=== PATIENT | male | born 1940 | race Caucasian/White ===

== ENCOUNTER → 2016-08-17 | Outpatient (CLI) | payer MEDICARE, BC | END | disposition home or self-care (01) | LOC: MW.CHFP 13:05 | PROVIDERS: ATTEND Family Medicine | DX: E11.42 Type 2 diabetes mellitus with diabetic polyneuropathy (principal); I10 Essential (primary) hypertension; I25.10 Atherosclerotic heart disease of native coronary artery without angina pectoris; E78.5 Hyperlipidemia, unspecified; K21.9 Gastro-esophageal reflux disease without esophagitis | CPT/HCPCS: 36415; 80048; 80061; 83036; 99214 ==

== ENCOUNTER 2019-06-02 15:20 | Inpatient (IN) | payer MEDICARE, BC ==
[2019-06-02] MEDS ORDERED: Morphine 10 MG/ML Syringe IVPUSH PRN (15:27)
[2019-06-02] MEDS ORDERED: Albuterol 0.083% 2.5 MG/3 ML Neb Soln NEB PRN (15:29)
[2019-06-02] MEDS ORDERED: Sodium Chloride 0.9% 2.5 ML Syringe FLUSH PRN (15:29)
[2019-06-02] MEDS ORDERED: Ondansetron 4 MG/2 ML SDV IVPUSH PRN (15:29)
[2019-06-02] MEDS ORDERED: Docusate Sodium 100 MG Cap PO PRN (15:29)
--- NOTE | 2019-06-02 15:42 | PCM.HP.2 ---
H&P History of Present Illness - General Date of Service: 06/02/19 Admit Problem/Dx: Admission Diagnosis/Problem Admission Diagnosis/Problem Fracture of hip Source of Information: Patient History Limitations: Reports: No Limitations - History of Present Illness Initial Comments - Free Text/Narative: This 79 year old male with pmh of CAD, HTN, dyslipidemia, Dm Type [address] Reese's clinic today with hip pain. 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 He denies passing out. he reports he thinks his hand slipped and then he lost his balance and fell off the ladder landing on his R hip. He reports he had pain and dealt with it over the weekend, ambulating with crutches, but the pain continued and he saught evaluation in the clinic. He reports he has been feeling really well otherwise. No fevers chill or recent URI. He denies chest pain, palpitations or dyspnea. He denies abdominal pain. No urinary or bowel concerns. No black or bloody BMs. No focal neurological deficits. He reports he had 2 stents placed 8 years ago for angina and dyspnea. He denies NC. He reports these symptoms immediately improved after stents were placed. He was on Plavix previously, but now only takes ASA daily. Denies CHF. DM Type 2 is controlled, last A1c was 6.4 in March 2019. He denies tobacco use or alcohol use. In the clinic Xray of R hip revealed basicervical fracture within the R hip. Direct admission arranged. Once admitted, mild leukocytosis noted, likely reactive from fracture. No acute infection noted. CXR negative, no cardiopulmonary process, no cardiomegaly noted. EKG SR with no St elevations or T wave inversions noted. BMP WNL. Will obtain UA. PCP, Dr Reese - Related Data Allergies/Adverse Reactions: Allergies Allergy/AdvReac Type Severity Reaction Status Date / Time No Known Allergies Allergy Verified 06/02/19 16:15 Home Medications: Home Meds ALPRAZolam [Alprazolam] 1 mg PO DAILY PRN 06/02/19 [History] Glimepiride [Amaryl] 2 mg PO DAILY 06/02/19 [History] Lisinopril 40 mg PO DAILY 06/02/19 [History] Metoprolol Tartrate 25 mg PO BID 06/02/19 [History] amLODIPine Besylate [Norvasc] 10 mg PO DAILY 06/02/19 [History] atorvaSTATin [Lipitor] 40 mg PO DAILY 06/02/19 [History] hydroCHLOROthiazide [Hydrochlorothiazide] 25 mg PO DAILY 06/02/19 [History] metFORMIN HCl [Metformin HCl ER] 1,500 mg PO WITHDINNER 06/02/19 [History] Past Medical History Cardiovascular History: Reports: CAD, Hypertension, Stents (8 years ago, 2 stents). Denies: Afib, Blood Clots/VTE/DVT, Heart Failure, Pacemaker Respiratory History: Reports: None. Denies: Asthma, COPD Gastrointestinal History: Reports: GERD Genitourinary History: Reports: None. Denies: Chronic Renal Insuffiency Musculoskeletal History: Reports: None Neurological History: Reports: None. Denies: CVA, TIA Psychiatric History: Reports: Anxiety Endocrine/Metabolic History: Reports: Diabetes, Type II. Denies: Hypothyroidism Dermatologic History: Reports: Other (See Below) (recently had some actinic keritosis removed from ear, sent for pathology by ENT May 29 2019) - Past Surgical History Other HEENT Surgeries/Procedures: dental caries Cardiovascular Surgical History: Reports: Coronary Artery Stent Social & Family History - Tobacco Use Smoking Status *Q: Never Smoker - Caffeine Use Caffeine Use: Reports: Coffee - Alcohol Use Alcohol Use History: No - Living Situation & Occupation Living situation: Reports: Single Occupation: Retired (still ranches) H&P Review of Systems - Review of Systems: Review Of Systems: See Below General: Reports: No Symptoms. Denies: Fever, Chills, Malaise, Weakness HEENT: Reports: No Symptoms. Denies: Headaches, Sinus Congestion, Vertigo Pulmonary: Reports: No Symptoms. Denies: Shortness of Breath Cardiovascular: Reports: No Symptoms. Denies: Chest Pain, Lightheadedness, Syncope, Blood Pressure Problem Gastrointestinal: Reports: No Symptoms. Denies: Abdominal Pain, Black Stool, Bloody Stool, Nausea, Vomiting Genitourinary: Reports: No Symptoms. Denies: Dysuria, Frequency, Burning Musculoskeletal: Reports: Joint Pain (R hip pain, mostly in R groin) Skin: Reports: No Symptoms. Denies: Bruising Psychiatric: Reports: No Symptoms Neurological: Reports: No Symptoms Hematologic/Lymphatic: Reports: No Symptoms Immunologic: Reports: No Symptoms Exam - Exam Exam: See Below - Exam General: Alert, Oriented, Cooperative HEENT: Conjunctiva Clear, Posterior Pharynx Clear. No: Mucosa Moist & [place] (dry ) Neck: Supple, Trachea Midline Lungs: Clear to Auscultation, Normal Respiratory Effort Cardiovascular: Regular Rate, Regular Rhythm, Normal S1, Normal S2. No: Irregular Rhythm, Systolic Murmur GI/Abdominal Exam: Normal Bowel Sounds, Soft, Non-Tender Back Exam: Normal Inspection, Full Range of Motion Extremities: Normal Inspection, No Pedal Edema. No: Normal Range of Motion ( pain with R leg movement) Neurological: Cranial Nerves Intact Neuro Extensive - Mental Status: Alert, Oriented x3, Normal Mood/Affect, Normal Cognition Psychiatric: Alert, Normal Affect, Normal Mood - Patient Data Result Diagrams: 06/02/19 15:47 06/02/19 15:47 EKG INTERPRETATION EKG Date: 06/02/19 Rhythm: NSR P-Wave: Present QRS: Normal ST-T: Normal QT: Normal *Q Meaningful Use (ADM) - VTE Risk Assess *Q Each Risk Factor Represents 1 Point: Obesity ( BMI > 25 kg/m2) Total Score 1 Point Risk Factors: 1 Each Risk Factor Represents 3 Points: Age 75 Years or Greater Total Score 3 Point Risk Factors: 3 Each Risk Factor Represents 5 Points: Hip, Pelvis or Leg Fracture, Less than 1 month Total Score 5 Point Risk Factors: 5 - Problem List (1) Hip fracture SNOMED Code(s): 758941837 ICD Code: S72.009A - FRACTURE OF UNSP PART OF NECK OF UNSP FEMUR, INIT Status: Acute Current Visit: Yes Qualifiers: Encounter type: initial encounter Fracture type: closed Laterality: right Qualified Code(s): S72.001A - Fracture of unspecified part of neck of right femur, initial encounter for closed fracture (2) CAD (coronary artery disease) SNOMED Code(s): 02843288 ICD Code: I25.10 - ATHSCL HEART DISEASE OF [place] CORONARY ARTERY W/O ANG PCTRS Status: Chronic Current Visit: Yes (3) Osteopenia SNOMED Code(s): 219929289 ICD Code: M85.80 - OTH DISRD OF BONE DENSITY AND STRUCTURE, UNSPECIFIED SITE Status: Chronic Current Visit: Yes (4) HTN (hypertension) SNOMED Code(s): 91425387 ICD Code: I10 - ESSENTIAL (PRIMARY) HYPERTENSION Status: Chronic Current Visit: Yes (5) DM type 2 (diabetes mellitus, type 2) SNOMED Code(s): 28385069 ICD Code: E11.9 - TYPE 2 DIABETES MELLITUS WITHOUT COMPLICATIONS Status: Chronic Current Visit: Yes Qualifiers: Diabetes mellitus moth exterminator insulin use: without moth exterminator use Diabetes mellitus complication status: without complication Qualified Code(s): E11.9 - Type 2 diabetes mellitus without complications (6) Anxiety SNOMED Code(s): 30276003 ICD Code: F41.9 - ANXIETY DISORDER, UNSPECIFIED Status: Chronic Current Visit: Yes (7) GERD (gastroesophageal reflux disease) SNOMED Code(s): 524895539 ICD Code: K21.9 - GASTRO-ESOPHAGEAL REFLUX DISEASE WITHOUT ESOPHAGITIS Status: Chronic Current Visit: Yes Qualifiers: Esophagitis presence: without esophagitis Qualified Code(s): K21.9 - Gastro -esophageal reflux disease without esophagitis (8) Dyslipidemia SNOMED Code(s): 394976383 ICD Code: E78.5 - HYPERLIPIDEMIA, UNSPECIFIED Status: Chronic Current Visit: Yes Problem List Initiated/Reviewed/Updated: Yes Orders Last 24hrs: Active Orders 24 hr Category Date Time Status Patient Status [ADT] Routine ADT 06/02/19 15:27 Active EKG Documentation Completion [RC] STAT Care 06/02/19 15:29 Active Height and Weight [RC] DAILY Care 06/02/19 15:27 Active Intake and Output [RC] QSHIFT Care 06/02/19 15:28 Active Notify Provider Consults [RC] ASDIRECTED Care 06/02/19 15:32 Active Oxygen Therapy [RC] PRN Care 06/02/19 15:27 Active RT Aerosol Therapy [RC] ASDIRECTED Care 06/02/19 15:30 Active VTE/DVT Education [RC] PER UNIT ROUTINE Care 06/02/19 15:27 Active Vital Signs [RC] Q4H Care 06/02/19 15:27 Active Consult to Physician [CONS] Routine Cons 06/02/19 15:29 Active Nothing per Oral Now Diet [DIET] Diet 06/02/19 Dinner Active Chest 1V Frontal [CR] Urgent Exams 06/02/19 15:29 Ordered CBC WITH AUTO DIFF [HEME] Routine Lab 06/02/19 15:29 Ordered COMPREHENSIVE METABOLIC PN,CMP [CHEM] Routine Lab 06/02/19 15:29 Ordered INR,PT,PROTHROMBIN TIME [COAG] Routine Lab 06/02/19 15:29 Ordered PTT,PARTIAL THROMBOPLSTIN TIME [COAG] Routine Lab 06/02/19 15:29 Ordered Albuterol [Proventil Neb Soln] Med 06/02/19 15:29 Active 2.5 mg NEB Q2H PRN Docusate Sodium [Colace] Med 06/02/19 15:29 Active 100 mg PO BID PRN Morphine Med 06/02/19 15:33 Active 2 mg IVPUSH Q2H PRN Ondansetron [Zofran] Med 06/02/19 15:29 Active 4 mg IVPUSH Q4H PRN Sodium Chloride 0.9% [Saline Flush] Med 06/02/19 15:29 Active 2.5 ml FLUSH ASDIRECTED PRN Saline Lock Insert [OM.PC] Routine Oth 06/02/19 15:27 Ordered Medication Orders Albuterol (Proventil Neb Soln) 2.5 mg NEB Q2H PRN PRN Reason: Shortness Of Breath/wheezing Docusate Sodium (Colace) 100 mg PO BID PRN PRN Reason: Constipation Morphine Sulfate (Morphine) 2 mg IVPUSH Q2H PRN PRN Reason: Pain (severe 7-10) Ondansetron HCl (Zofran) 4 mg IVPUSH Q4H PRN PRN Reason: Nausea Sodium Chloride (Saline Flush) 2.5 ml FLUSH ASDIRECTED PRN PRN Reason: Keep Vein Open Assessment/Plan Comment:: This 79 year old male admitted with R hip fracture 1. R hip fracture: Dr Bah, Orthopedics consulted, like OR tomorrow afternoon. Tylenol for pain, Morphine for severe pain. Bedrest. No history of bleeding or Blood clots. 2. CAD: Stable, no chest pain. EKG SR. Continue ASA. Place on telemetry. Continue Statin 3. HTN: BP Stable, continue Metoprolol and Norvasc. 4. DM Type 2: Hold PO medications during admission. Novolog SSI. 5. Anxiety: Continue Alprazolam, takes very infrequently. 6. GERD: Will give Protonix in am due to NPO for surgery. Normally takes Omeprazole. VTE prophylaxis: SCDs for now, will speak with Orthopedics regarding this post- operatively. Rg is an appropriate surgical risk given his history of CAD, HTN and DM Type 2. - Mortality Measure Prognosis:: Good
--- NOTE | 2019-06-02 16:11 | CR ---
Chest: Portable view of the chest was obtained. Comparison: Prior chest x-ray of 01/15/14. Heart size and mediastinum are within normal limits for portable technique. Lungs are clear with no acute parenchymal change. Bony structures are grossly intact. Impression: Nothing acute is identified on portable chest x-ray. Diagnostic code #1 This report was dictated in [place] Standard Time MTDD
[2019-06-02 16:22] LABS: CARBON DIOXIDE,CO2 25.2 mmol/L (21.0-32.0); POTASSIUM,K 3.8 mmol/L (3.5-5.1)
[2019-06-02] MEDS: Insulin Aspart 100 Units/ML 3 ML Pen SUBCUT SCH (16:57)
[2019-06-02] MEDS: Lactated Ringers 1,000 ML IV SCH (23:35)
[2019-06-03] MEDS: ALPRAZolam 0.5 MG Tab PO PRN ×2 (00:43→09:13)
[2019-06-03] MEDS: Metoprolol Tartrate 25 MG Tab PO SCH ×3 (03:03→21:02)
[2019-06-03 05:45] LABS: CARBON DIOXIDE,CO2 25.7 mmol/L (21.0-32.0); POTASSIUM,K 3.4 mmol/L (3.5-5.1)
[2019-06-03] MEDS: Pantoprazole 40 MG in Sodium Chloride 0.9% 10 ML IV SCH (07:11)
--- NOTE | 2019-06-03 07:54 | PCM.PN ---
- General Info Date of Service: 06/03/19 Admission Dx/Problem (Free Text): Admission Diagnosis/Problem Admission Diagnosis/Problem Fracture of hip Subjective Update: Doing well, no pain today. No chest pain or palpitations. feels a little anxious about surgery today. Functional Status: Reports: Pain Controlled, Urinating. Denies: Ambulating - Review of Systems HEENT: Reports: No Symptoms. Denies: Headaches, Sore Throat Pulmonary: Reports: No Symptoms. Denies: Shortness of Breath Cardiovascular: Reports: No Symptoms. Denies: Chest Pain Gastrointestinal: Reports: No Symptoms. Denies: Abdominal Pain, Nausea, Vomiting Genitourinary: Reports: No Symptoms Musculoskeletal: Reports: No Symptoms Skin: Reports: No Symptoms Neurological: Reports: No Symptoms Psychiatric: Reports: No Symptoms - Patient Data Vitals - Most Recent: Last Vital Signs Temp 97.8 F 06/03/19 04:00 Pulse 80 06/03/19 04:00 Resp 14 06/03/19 04:00 BP 130/58 L 06/03/19 04:00 Pulse Ox 93 L 06/03/19 04:00 Weight - Most Recent: 81.329 kg I&O - Last 24 Hours: Intake & Output 06/02/19 06/03/19 06/03/19 22:59 06:59 14:59 Intake Total 0 500 Output Total 0 400 Balance 0 100 Lab Results Last 24 Hours: Laboratory Results - last 24 hr 06/02/19 06/02/19 06/02/19 Range/Units 15:47 15:47 15:47 WBC 11.87 H (4.0-11.0) K/uL RBC 3.95 L (4.50-5.90) M/uL Hgb 12.5 L (13.0-17.0) g/dL Hct 36.3 L (38.0-50.0) % MCV 91.9 (80.0-98.0) fL MCH 31.6 (27.0-32.0) pg MCHC 34.4 (31.0-37.0) g/dL RDW Std Deviation 46.0 (28.0-62.0) fl RDW Coeff of Jarod 14 (11.0-15.0) % Plt Count 165 (150-400) K/uL MPV 11.60 (7.40-12.00) fL Neut % (Auto) 69.1 (48.0-80.0) % Lymph % (Auto) 16.6 (16.0-40.0) % Hunt % (Auto) 10.8 (0.0-15.0) % Eos % (Auto) 3.2 (0.0-7.0) % Baso % (Auto) 0.3 (0.0-1.5) % Neut # (Auto) 8.2 H (1.4-5.7) K/uL Lymph # (Auto) 2.0 (0.6-2.4) K/uL Hunt # (Auto) 1.3 H (0.0-0.8) K/uL Eos # (Auto) 0.4 (0.0-0.7) K/uL Baso # (Auto) 0.0 (0.0-0.1) K/uL Nucleated RBC % 0.0 /100WBC Nucleated RBCs # 0 K/uL INR 1.05 APTT 28.0 (18.6-31.3) SEC Sodium 142 (136-148) mmol/L Potassium 3.8 (3.5-5.1) mmol/L Chloride 106 (98-107) mmol/L Carbon Dioxide 25.2 (21.0-32.0) mmol/L BUN 21 H (7.0-18.0) mg/dL Creatinine 1.3 (0.8-1.3) mg/dL Est Cr Clr Drug Dosing 43.12 mL/min Estimated GFR (MDRD) 53.0 ml/min Glucose 118 H (74-106) mg/dL POC Glucose (60-110) mg/dL Calcium 8.9 (8.5-10.1) mg/dL Total Bilirubin 0.9 (0.2-1.0) mg/dL AST 19 (15-37) IU/L ALT 22 (14-63) IU/L Alkaline Phosphatase 85 (46-116) U/L Total Protein 7.4 (6.4-8.2) g/dL Albumin 3.8 (3.4-5.0) g/dL Globulin 3.6 (2.6-4.0) g/dL Albumin/Globulin Ratio 1.1 (0.9-1.6) Urine Color Urine Appearance Urine pH (5.0-8.0) Ur Specific [place] (1.001-1.035) Urine Protein (NEGATIVE) mg/dL Urine Glucose (UA) (NEGATIVE) mg/dL Urine Ketones (NEGATIVE) mg/dL Urine Occult Blood (NEGATIVE) Urine Nitrite (NEGATIVE) Urine Bilirubin (NEGATIVE) Urine Urobilinogen (<2.0) EU/dL Ur Leukocyte Esterase (NEGATIVE) Urine RBC (0-2/HPF) Urine WBC (0-5/HPF) Ur Epithelial Cells (NONE-FEW) Urine Bacteria (NEGATIVE) 06/02/19 06/02/19 06/03/19 Range/Units 16:57 19:35 05:15 WBC 8.76 (4.0-11.0) K/uL RBC 3.66 L (4.50-5.90) M/uL Hgb 11.5 L (13.0-17.0) g/dL Hct 33.3 L (38.0-50.0) % MCV 91.0 (80.0-98.0) fL MCH 31.4 (27.0-32.0) pg MCHC 34.5 (31.0-37.0) g/dL RDW Std Deviation 45.2 (28.0-62.0) fl RDW Coeff of Jarod 14 (11.0-15.0) % Plt Count 142 L (150-400) K/uL MPV 11.40 (7.40-12.00) fL Neut % (Auto) 63.6 (48.0-80.0) % Lymph % (Auto) 19.3 (16.0-40.0) % Hunt % (Auto) 11.6 (0.0-15.0) % Eos % (Auto) 5.4 (0.0-7.0) % Baso % (Auto) 0.1 (0.0-1.5) % Neut # (Auto) 5.6 (1.4-5.7) K/uL Lymph # (Auto) 1.7 (0.6-2.4) K/uL Hunt # (Auto) 1.0 H (0.0-0.8) K/uL Eos # (Auto) 0.5 (0.0-0.7) K/uL Baso # (Auto) 0.0 (0.0-0.1) K/uL Nucleated RBC % 0.0 /100WBC Nucleated RBCs # 0 K/uL INR APTT (18.6-31.3) SEC Sodium (136-148) mmol/L Potassium (3.5-5.1) mmol/L Chloride (98-107) mmol/L Carbon Dioxide (21.0-32.0) mmol/L BUN (7.0-18.0) mg/dL Creatinine (0.8-1.3) mg/dL Est Cr Clr Drug Dosing mL/min Estimated GFR (MDRD) ml/min Glucose (74-106) mg/dL POC Glucose 97 (60-110) mg/dL Calcium (8.5-10.1) mg/dL Total Bilirubin (0.2-1.0) mg/dL AST (15-37) IU/L ALT (14-63) IU/L Alkaline Phosphatase (46-116) U/L Total Protein (6.4-8.2) g/dL Albumin (3.4-5.0) g/dL Globulin (2.6-4.0) g/dL Albumin/Globulin Ratio (0.9-1.6) Urine Color YELLOW Urine Appearance CLEAR Urine pH 5.0 (5.0-8.0) Ur Specific [place] 1.025 (1.001-1.035) Urine Protein TRACE H (NEGATIVE) mg/dL Urine Glucose (UA) NEGATIVE (NEGATIVE) mg/dL Urine Ketones NEGATIVE (NEGATIVE) mg/dL Urine Occult Blood NEGATIVE (NEGATIVE) Urine Nitrite NEGATIVE (NEGATIVE) Urine Bilirubin NEGATIVE (NEGATIVE) Urine Urobilinogen 0.2 (<2.0) EU/dL Ur Leukocyte Esterase NEGATIVE (NEGATIVE) Urine RBC 0-2 (0-2/HPF) Urine WBC 0-2 (0-5/HPF) Ur Epithelial Cells RARE (NONE-FEW) Urine Bacteria RARE (NEGATIVE) 06/03/19 06/03/19 Range/Units 05:15 07:08 WBC (4.0-11.0) K/uL RBC (4.50-5.90) M/uL Hgb (13.0-17.0) g/dL Hct (38.0-50.0) % MCV (80.0-98.0) fL MCH (27.0-32.0) pg MCHC (31.0-37.0) g/dL RDW Std Deviation (28.0-62.0) fl RDW Coeff of Jarod (11.0-15.0) % Plt Count (150-400) K/uL MPV (7.40-12.00) fL Neut % (Auto) (48.0-80.0) % Lymph % (Auto) (16.0-40.0) % Hunt % (Auto) (0.0-15.0) % Eos % (Auto) (0.0-7.0) % Baso % (Auto) (0.0-1.5) % Neut # (Auto) (1.4-5.7) K/uL Lymph # (Auto) (0.6-2.4) K/uL Hunt # (Auto) (0.0-0.8) K/uL Eos # (Auto) (0.0-0.7) K/uL Baso # (Auto) (0.0-0.1) K/uL Nucleated RBC % /100WBC Nucleated RBCs # K/uL INR APTT (18.6-31.3) SEC Sodium 141 (136-148) mmol/L Potassium 3.4 L (3.5-5.1) mmol/L Chloride 107 (98-107) mmol/L Carbon Dioxide 25.7 (21.0-32.0) mmol/L BUN 17 (7.0-18.0) mg/dL Creatinine 1.2 (0.8-1.3) mg/dL Est Cr Clr Drug Dosing 46.71 mL/min Estimated GFR (MDRD) 58.1 ml/min Glucose 134 H (74-106) mg/dL POC Glucose 135 H (60-110) mg/dL Calcium 8.1 L (8.5-10.1) mg/dL Total Bilirubin (0.2-1.0) mg/dL AST (15-37) IU/L ALT (14-63) IU/L Alkaline Phosphatase (46-116) U/L Total Protein (6.4-8.2) g/dL Albumin (3.4-5.0) g/dL Globulin (2.6-4.0) g/dL Albumin/Globulin Ratio (0.9-1.6) Urine Color Urine Appearance Urine pH (5.0-8.0) Ur Specific [place] (1.001-1.035) Urine Protein (NEGATIVE) mg/dL Urine Glucose (UA) (NEGATIVE) mg/dL Urine Ketones (NEGATIVE) mg/dL Urine Occult Blood (NEGATIVE) Urine Nitrite (NEGATIVE) Urine Bilirubin (NEGATIVE) Urine Urobilinogen (<2.0) EU/dL Ur Leukocyte Esterase (NEGATIVE) Urine RBC (0-2/HPF) Urine WBC (0-5/HPF) Ur Epithelial Cells (NONE-FEW) Urine Bacteria (NEGATIVE) Med Orders - Current: Current Medications Albuterol (Proventil Neb Soln) 2.5 mg NEB Q2H PRN PRN Reason: Shortness Of Breath/wheezing Alprazolam (Xanax) 0.5 - 1 mg PO DAILY PRN PRN Reason: Anxiety Last Admin: 06/03/19 00:43 Dose: 0.25 mg Amlodipine Besylate (Norvasc) 10 mg PO DAILY [facility] Atorvastatin Calcium (Lipitor) 40 mg PO DAILY [facility] Docusate Sodium (Colace) 100 mg PO BID PRN PRN Reason: Constipation Hydrochlorothiazide (Hydrochlorothiazide) 25 mg PO DAILY [facility] Pantoprazole Sodium 40 mg/ (Sodium Chloride) 10 mls @ 300 mls/hr IV Q24H [facility] Last Admin: 06/03/19 07:11 Dose: 300 mls/hr Lactated Ringer's (Ringers, Lactated) 1,000 mls @ 50 mls/hr IV Q20H [facility] Last Admin: 06/02/19 23:35 Dose: 50 mls/hr Insulin Aspart (Novolog) 0 unit SUBCUT TIDAC [facility]; Protocol Last Admin: 06/02/19 16:57 Dose: Not Given Lisinopril (Prinivil) 40 mg PO DAILY [facility] Metoprolol Tartrate (Lopressor) 25 mg PO BID [facility] Last Admin: 06/03/19 03:03 Dose: Not Given Morphine Sulfate (Morphine) 2 mg IVPUSH Q2H PRN PRN Reason: Pain (severe 7-10) Ondansetron HCl (Zofran) 4 mg IVPUSH Q4H PRN PRN Reason: Nausea Sodium Chloride (Saline Flush) 2.5 ml FLUSH ASDIRECTED PRN PRN Reason: Keep Vein Open Discontinued Medications Morphine Sulfate (Morphine) 2 mg IVPUSH Q2H PRN PRN Reason: Pain (severe 7-10) - Exam General: Alert, Oriented, Cooperative, No Acute Distress Lungs: Clear to Auscultation, Normal Respiratory Effort Cardiovascular: Regular Rate, Regular Rhythm, No Murmurs GI/Abdominal Exam: Normal Bowel Sounds, Soft, Non-Tender Extremities: Normal Inspection, Normal Range of Motion, Non-Tender, No Pedal Edema Psy/Mental Status: Alert, Normal Affect, Normal Mood - Problem List & Annotations (1) Hip fracture SNOMED Code(s): 047650954 Code(s): S72.009A - FRACTURE OF UNSP PART OF NECK OF UNSP FEMUR, INIT Status: Acute Current Visit: Yes Qualifiers: Encounter type: initial encounter Fracture type: closed Laterality: right Qualified Code(s): S72.001A - Fracture of unspecified part of neck of right femur, initial encounter for closed fracture (2) CAD (coronary artery disease) SNOMED Code(s): 65177177 Code(s): I25.10 - ATHSCL HEART DISEASE OF [place] CORONARY ARTERY W/O ANG PCTRS Status: Chronic Current Visit: Yes (3) Osteopenia SNOMED Code(s): 009854573 Code(s): M85.80 - OTH DISRD OF BONE DENSITY AND STRUCTURE, UNSPECIFIED SITE Status: Chronic Current Visit: Yes (4) HTN (hypertension) SNOMED Code(s): 31711643 Code(s): I10 - ESSENTIAL (PRIMARY) HYPERTENSION Status: Chronic Current Visit: Yes (5) DM type 2 (diabetes mellitus, type 2) SNOMED Code(s): 46858542 Code(s): E11.9 - TYPE 2 DIABETES MELLITUS WITHOUT COMPLICATIONS Status: Chronic Current Visit: Yes Qualifiers: Diabetes mellitus residential insulin use: without manager terminal use Diabetes mellitus complication status: without complication Qualified Code(s): E11.9 - Type 2 diabetes mellitus without complications (6) Anxiety SNOMED Code(s): 68236526 Code(s): F41.9 - ANXIETY DISORDER, UNSPECIFIED Status: Chronic Current Visit: Yes (7) GERD (gastroesophageal reflux disease) SNOMED Code(s): 817715046 Code(s): K21.9 - GASTRO-ESOPHAGEAL REFLUX DISEASE WITHOUT ESOPHAGITIS Status: Chronic Current Visit: Yes Qualifiers: Esophagitis presence: without esophagitis Qualified Code(s): K21.9 - Gastro -esophageal reflux disease without esophagitis (8) Dyslipidemia SNOMED Code(s): 326629404 Code(s): E78.5 - HYPERLIPIDEMIA, UNSPECIFIED Status: Chronic Current Visit: Yes - Problem List Review Problem List Initiated/Reviewed/Updated: Yes - My Orders Last 24 Hours: My Active Orders 06/02/19 15:27 Patient Status [ADT] Routine Height and Weight [RC] DAILY Oxygen Therapy [RC] PRN VTE/DVT Education [RC] PER UNIT ROUTINE Vital Signs [RC] Q4H Saline Lock Insert [OM.PC] Routine 06/02/19 15:28 Intake and Output [RC] Q12H 06/02/19 15:29 Consult to Physician [CONS] Routine Albuterol [Proventil Neb Soln] 2.5 mg NEB Q2H PRN Docusate Sodium [Colace] 100 mg PO BID PRN Ondansetron [Zofran] 4 mg IVPUSH Q4H PRN Sodium Chloride 0.9% [Saline Flush] 2.5 ml FLUSH ASDIRECTED PRN 06/02/19 15:30 RT Aerosol Therapy [RC] ASDIRECTED 06/02/19 15:32 Notify Provider Consults [RC] ASDIRECTED 06/02/19 15:33 Morphine 2 mg IVPUSH Q2H PRN 06/02/19 15:48 Blood Glucose Check, Bedside [RC] TIDAC 06/02/19 15:51 Bedrest [RC] ASDIRECTED Telemetry Monitoring [Cardiac Monitoring] [RC] Q8H 06/02/19 16:20 ALPRAZolam [Xanax] 0.5 - 1 mg PO DAILY PRN 06/02/19 17:00 Insulin Aspart [NovoLOG] See Protocol SUBCUT TIDAC 06/02/19 23:45 Lactated Ringers [Ringers, Lactated] 1,000 ml IV Q20H 06/02/19 Dinner Heart Healthy Diet [DIET] Nothing per Oral After Midnight Diet [DIET] 06/03/19 07:00 Pantoprazole [ProTONIX IV] 40 mg Sodium Chloride 0.9% [Normal Saline] 10 ml IV Q24H 06/03/19 09:00 Lisinopril [Prinivil] 40 mg PO DAILY amLODIPine [Norvasc] 10 mg PO DAILY atorvaSTATin [Lipitor] 40 mg PO DAILY hydroCHLOROthiazide 25 mg PO DAILY 06/04/19 05:11 BMP [BASIC METABOLIC PANEL,BMP] [CHEM] AM CBC WITH AUTO DIFF [HEME] AM - Plan Plan:: This 79 year old male admitted with R hip fracture 1. R hip fracture: Dr Bah, Orthopedics consulted, like OR today. Tylenol for pain, Morphine for severe pain. Bedrest. No history of bleeding or Blood clots. 2. CAD: Stable, no chest pain. EKG SR. Continue ASA. No events on telemetry. Continue Statin 3. HTN: BP Stable, continue Metoprolol and Norvasc. 4. DM Type 2: BS stable Hold PO medications during admission. Novolog SSI. 5. Anxiety: Continue Alprazolam, takes very infrequently. 6. GERD: Will give Protonix in am due to NPO for surgery. Normally takes Omeprazole. VTE prophylaxis: SCDs for now, will speak with Orthopedics regarding this post- operatively.
[2019-06-03] MEDS: Insulin Aspart 100 Units/ML 3 ML Pen SUBCUT SCH ×3 (08:05→17:57)
[2019-06-03] MEDS: Hydrochlorothiazide 25 MG Tab PO SCH (10:28)
[2019-06-03] MEDS: atorvaSTATin 40 MG Tab PO SCH (10:28)
[2019-06-03] MEDS: amLODIPine 5 MG Tab PO SCH (10:28)
[2019-06-03] MEDS: Lisinopril 10 MG Tab PO SCH (10:29)
--- NOTE | 2019-06-03 11:31 | PCM.PREANE ---
Preanesthetic Assessment - Anesthesia/Transfusion/Family Hx Anesthesia History: Prior Anesthesia Without Reaction Family History of Anesthesia Reaction: No Transfusion History: No Prior Transfusion(s) - Review of Systems General: No Symptoms Pulmonary: No Symptoms Cardiovascular: No Symptoms Gastrointestinal: No Symptoms Neurological: No Symptoms Other: Reports: None - Physical Assessment NPO Status Date: 06/02/19 Vital Signs: Last Vital Signs Temp 97.8 F 06/03/19 04:00 Pulse 78 06/03/19 09:14 Resp 14 06/03/19 04:00 BP 140/66 06/03/19 09:14 Pulse Ox 93 L 06/03/19 04:00 Height: 5 ft 8 in Weight: 81.329 kg ASA Class: 3 Mental Status: Alert & Oriented x3 Airway Class: Mallampati = 2 ROM/Head Extension: Full Lungs: Clear to Auscultation, Normal Respiratory Effort Cardiovascular: Regular Rate, Regular Rhythm - Lab Values: Laboratory Last Values WBC 8.76 K/uL (4.0-11.0) 06/03/19 05:15 RBC 3.66 M/uL (4.50-5.90) L 06/03/19 05:15 Hgb 11.5 g/dL (13.0-17.0) L 06/03/19 05:15 Hct 33.3 % (38.0-50.0) L 06/03/19 05:15 MCV 91.0 fL (80.0-98.0) 06/03/19 05:15 MCH 31.4 pg (27.0-32.0) 06/03/19 05:15 MCHC 34.5 g/dL (31.0-37.0) 06/03/19 05:15 RDW Std Deviation 45.2 fl (28.0-62.0) 06/03/19 05:15 RDW Coeff of Jarod 14 % (11.0-15.0) 06/03/19 05:15 Plt Count 142 K/uL (150-400) L 06/03/19 05:15 MPV 11.40 fL (7.40-12.00) 06/03/19 05:15 Neut % (Auto) 63.6 % (48.0-80.0) 06/03/19 05:15 Lymph % (Auto) 19.3 % (16.0-40.0) 06/03/19 05:15 [place] % (Auto) 11.6 % (0.0-15.0) 06/03/19 05:15 Eos % (Auto) 5.4 % (0.0-7.0) 06/03/19 05:15 Baso % (Auto) 0.1 % (0.0-1.5) 06/03/19 05:15 Neut # (Auto) 5.6 K/uL (1.4-5.7) 06/03/19 05:15 Lymph # (Auto) 1.7 K/uL (0.6-2.4) 06/03/19 05:15 [place] # (Auto) 1.0 K/uL (0.0-0.8) H 06/03/19 05:15 Eos # (Auto) 0.5 K/uL (0.0-0.7) 06/03/19 05:15 Baso # (Auto) 0.0 K/uL (0.0-0.1) 06/03/19 05:15 Nucleated RBC % 0.0 /100WBC 06/03/19 05:15 Nucleated RBCs # 0 K/uL 06/03/19 05:15 INR 1.05 06/02/19 15:47 APTT 28.0 SEC (18.6-31.3) 06/02/19 15:47 Sodium 141 mmol/L (136-148) 06/03/19 05:15 Potassium 3.4 mmol/L (3.5-5.1) L 06/03/19 05:15 Chloride 107 mmol/L (98-107) 06/03/19 05:15 Carbon Dioxide 25.7 mmol/L (21.0-32.0) 06/03/19 05:15 BUN 17 mg/dL (7.0-18.0) 06/03/19 05:15 Creatinine 1.2 mg/dL (0.8-1.3) 06/03/19 05:15 Est Cr Clr Drug Dosing 46.71 mL/min 06/03/19 05:15 Estimated GFR (MDRD) 58.1 ml/min 06/03/19 05:15 Glucose 134 mg/dL (74-106) H 06/03/19 05:15 POC Glucose 135 mg/dL (60-110) H 06/03/19 07:08 Calcium 8.1 mg/dL (8.5-10.1) L 06/03/19 05:15 Total Bilirubin 0.9 mg/dL (0.2-1.0) 06/02/19 15:47 AST 19 IU/L (15-37) 06/02/19 15:47 ALT 22 IU/L (14-63) 06/02/19 15:47 Alkaline Phosphatase 85 U/L (46-116) 06/02/19 15:47 Total Protein 7.4 g/dL (6.4-8.2) 06/02/19 15:47 Albumin 3.8 g/dL (3.4-5.0) 06/02/19 15:47 Globulin 3.6 g/dL (2.6-4.0) 06/02/19 15:47 Albumin/Globulin Ratio 1.1 (0.9-1.6) 06/02/19 15:47 Urine Color YELLOW 06/02/19 19:35 Urine Appearance CLEAR 06/02/19 19:35 Urine pH 5.0 (5.0-8.0) 06/02/19 19:35 Ur Specific [place] 1.025 (1.001-1.035) 06/02/19 19:35 Urine Protein TRACE mg/dL (NEGATIVE) H 06/02/19 19:35 Urine Glucose (UA) NEGATIVE mg/dL (NEGATIVE) 06/02/19 19:35 Urine Ketones NEGATIVE mg/dL (NEGATIVE) 06/02/19 19:35 Urine Occult Blood NEGATIVE (NEGATIVE) 06/02/19 19:35 Urine Nitrite NEGATIVE (NEGATIVE) 06/02/19 19:35 Urine Bilirubin NEGATIVE (NEGATIVE) 06/02/19 19:35 Urine Urobilinogen 0.2 EU/dL (<2.0) 06/02/19 19:35 Ur Leukocyte Esterase NEGATIVE (NEGATIVE) 06/02/19 19:35 Urine RBC 0-2 (0-2/HPF) 06/02/19 19:35 Urine WBC 0-2 (0-5/HPF) 06/02/19 19:35 Ur Epithelial Cells RARE (NONE-FEW) 06/02/19 19:35 Urine Bacteria RARE (NEGATIVE) 06/02/19 19:35 - Allergies Allergies/Adverse Reactions: Allergies Allergy/AdvReac Type Severity Reaction Status Date / Time No Known Allergies Allergy Verified 06/02/19 16:15 - Blood Blood Available: No - Anesthesia Plan Pre-Op Medication Ordered: None - Acknowledgements Anesthesia Type Planned: Spinal Pt an Appropriate Candidate for the Planned Anesthesia: Yes Alternatives and Risks of Anesthesia Discussed w Pt/Guardian: Yes Pt/Guardian Understands and Agrees with Anesthesia Plan: Yes Additional Comments: PMH: cad, no hx of AMI, stents placed 8 yr ago, no sx since, on aspirin, dm2 with HBA1c of 6.4, htn-on lisinopril and hctz, HLD PLAN: spinal with sedation PreAnesthesia Questionnaire Cardiovascular History: Reports: CAD, Hypertension, Stents (8 years ago, 2 stents). Denies: Afib, Blood Clots/VTE/DVT, Heart Failure, Pacemaker Respiratory History: Reports: None. Denies: Asthma, COPD Gastrointestinal History: Reports: GERD Genitourinary History: Reports: None. Denies: Chronic Renal Insuffiency Musculoskeletal History: Reports: None Other Musculoskeletal History: right hip fracture, broke lower leg Neurological History: Reports: None. Denies: CVA, TIA Psychiatric History: Reports: Anxiety Endocrine/Metabolic History: Reports: Diabetes, Type II. Denies: Hypothyroidism Dermatologic History: Reports: Other (See Below) (recently had some actinic keritosis removed from ear, sent for pathology by ENT May 29 2019) Other Dermatologic History: lesions removed from inner ears - Infectious Disease History Infectious Disease History: Reports: None - Past Surgical History Other HEENT Surgeries/Procedures: dental caries Cardiovascular Surgical History: Reports: Coronary Artery Stent - SUBSTANCE USE Smoking Status *Q: Never Smoker Second Hand Smoke Exposure: No Recreational Drug Use History: No - HOME MEDS Home Medications: Home Meds ALPRAZolam [Alprazolam] 1 mg PO DAILY PRN 06/02/19 [History] Aspirin 81 mg PO DAILY 06/02/19 [History] Glimepiride [Amaryl] 2 mg PO DAILY 06/02/19 [History] Lisinopril 40 mg PO DAILY 06/02/19 [History] Metoprolol Tartrate 25 mg PO BID 06/02/19 [History] Nitroglycerin [Nitrostat] 0.4 mg SL ASDIRECTED PRN 06/02/19 [History] amLODIPine Besylate [Norvasc] 10 mg PO DAILY 06/02/19 [History] atorvaSTATin [Lipitor] 40 mg PO DAILY 06/02/19 [History] hydroCHLOROthiazide [Hydrochlorothiazide] 25 mg PO DAILY 06/02/19 [History] metFORMIN HCl [Metformin HCl ER] 1,500 mg PO WITHDINNER 06/02/19 [History] - CURRENT (IN HOUSE) MEDS Current Meds: Current Medications Albuterol (Proventil Neb Soln) 2.5 mg NEB Q2H PRN PRN Reason: Shortness Of Breath/wheezing Alprazolam (Xanax) 0.5 - 1 mg PO DAILY PRN PRN Reason: Anxiety Last Admin: 06/03/19 09:13 Dose: 0.5 mg Amlodipine Besylate (Norvasc) 10 mg PO DAILY [facility] Last Admin: 06/03/19 10:28 Dose: Not Given Atorvastatin Calcium (Lipitor) 40 mg PO DAILY [facility] Last Admin: 06/03/19 10:28 Dose: Not Given Docusate Sodium (Colace) 100 mg PO BID PRN PRN Reason: Constipation Hydrochlorothiazide (Hydrochlorothiazide) 25 mg PO DAILY [facility] Last Admin: 06/03/19 10:28 Dose: Not Given Pantoprazole Sodium 40 mg/ (Sodium Chloride) 10 mls @ 300 mls/hr IV Q24H [facility] Last Admin: 06/03/19 07:11 Dose: 300 mls/hr Lactated Ringer's (Ringers, Lactated) 1,000 mls @ 50 mls/hr IV Q20H [facility] Last Admin: 06/02/19 23:35 Dose: 50 mls/hr Insulin Aspart (Novolog) 0 unit SUBCUT TIDAC [facility]; Protocol Last Admin: 06/03/19 08:05 Dose: Not Given Lisinopril (Prinivil) 40 mg PO DAILY [facility] Last Admin: 06/03/19 10:29 Dose: Not Given Metoprolol Tartrate (Lopressor) 25 mg PO BID [facility] Last Admin: 06/03/19 09:14 Dose: 25 mg Morphine Sulfate (Morphine) 2 mg IVPUSH Q2H PRN PRN Reason: Pain (severe 7-10) Ondansetron HCl (Zofran) 4 mg IVPUSH Q4H PRN PRN Reason: Nausea Sodium Chloride (Saline Flush) 2.5 ml FLUSH ASDIRECTED PRN PRN Reason: Keep Vein Open Discontinued Medications Morphine Sulfate (Morphine) 2 mg IVPUSH Q2H PRN PRN Reason: Pain (severe 7-10)
--- NOTE | 2019-06-03 13:15 | PCM.CONS ---
H&P History of Present Illness - General Date of Service: 06/02/19 Admit Problem/Dx: Admission Diagnosis/Problem Admission Diagnosis/Problem Fracture of hip Source of Information: Patient History Limitations: Reports: No Limitations - History of Present Illness Initial Comments - Free Text/Narative: Patient is an 79-year-old male who injured his left hip to 3 days ago. He has tried to walk on this and has had difficulty weightbearing. He was seen in clinic by Dr. Bowers and on x-rays noted to have a left minimally displaced femoral neck fracture. The fact that the fracture is minimally displaced after multiple attempts at weightbearing indicates that the fracture pattern is stable. Patient denies other injuries. Patient notes some mild foot numbness due to diabetic neuropathy but otherwise no new changes in sensation. Onset of Symptoms: Reports: Sudden Duration of Symptoms: Reports: Day(s): Quality: Reports: Sharp Severity: Severe Improves with: Reports: Immobilization Worsens with: Reports: Movement Associated Symptoms: Reports: No Other Symptoms Right Hip Pain Score (Numeric/FACES): 0 - Related Data Allergies/Adverse Reactions: Allergies Allergy/AdvReac Type Severity Reaction Status Date / Time No Known Allergies Allergy Verified 06/02/19 16:15 Home Medications: Home Meds ALPRAZolam [Alprazolam] 1 mg PO DAILY PRN 06/02/19 [History] Aspirin 81 mg PO DAILY 06/02/19 [History] Glimepiride [Amaryl] 2 mg PO DAILY 06/02/19 [History] Lisinopril 40 mg PO DAILY 06/02/19 [History] Metoprolol Tartrate 25 mg PO BID 06/02/19 [History] Nitroglycerin [Nitrostat] 0.4 mg SL ASDIRECTED PRN 06/02/19 [History] amLODIPine Besylate [Norvasc] 10 mg PO DAILY 06/02/19 [History] atorvaSTATin [Lipitor] 40 mg PO DAILY 06/02/19 [History] hydroCHLOROthiazide [Hydrochlorothiazide] 25 mg PO DAILY 06/02/19 [History] metFORMIN HCl [Metformin HCl ER] 1,500 mg PO WITHDINNER 06/02/19 [History] Past Medical History Cardiovascular History: Reports: CAD, Hypertension, Stents (8 years ago, 2 stents). Denies: Afib, Blood Clots/VTE/DVT, Heart Failure, Pacemaker Respiratory History: Reports: None. Denies: Asthma, COPD Gastrointestinal History: Reports: GERD Genitourinary History: Reports: None. Denies: Chronic Renal Insuffiency Musculoskeletal History: Reports: None Other Musculoskeletal History: right hip fracture, broke lower leg Neurological History: Reports: None. Denies: CVA, TIA Psychiatric History: Reports: Anxiety Endocrine/Metabolic History: Reports: Diabetes, Type II. Denies: Hypothyroidism Dermatologic History: Reports: Other (See Below) (recently had some actinic keritosis removed from ear, sent for pathology by ENT May 29 2019) Other Dermatologic History: lesions removed from inner ears - Infectious Disease History Infectious Disease History: Reports: None - Past Surgical History Other HEENT Surgeries/Procedures: dental caries Cardiovascular Surgical History: Reports: Coronary Artery Stent Social & Family History - Family History Family Medical History: Noncontributory - Tobacco Use Smoking Status *Q: Never Smoker Second Hand Smoke Exposure: No - Caffeine Use Caffeine Use: Reports: Coffee - Recreational Drug Use Recreational Drug Use: No - Living Situation & Occupation Living situation: Reports: Single Occupation: Retired (still [employer]) H&P Review of Systems - Review of Systems: Review Of Systems: See Below Musculoskeletal: Reports: Joint Pain Exam - Exam Exam: See Below - Vital Signs Vital Signs: Last Vital Signs Temp 97.8 F 06/03/19 07:10 Pulse 78 06/03/19 09:14 Resp 14 06/03/19 07:10 BP 140/66 06/03/19 09:14 Pulse Ox 95 06/03/19 07:10 Weight: 179 lb 4.8 oz - Exam General: Alert, Oriented, Cooperative Neck: Supple Lungs: Clear to Auscultation Cardiovascular: Regular Rate, Regular Rhythm GI/Abdominal Exam: Normal Bowel Sounds, Soft, Non-Tender Extremities: Other (Hip range of motion, stability, and palpation deferred due to hip fracture) Peripheral Pulses: 1+: Dorsalis Pedis (L) Skin: Warm, Dry, Intact Psychiatric: Alert, Normal Affect, Normal Mood - Patient Data Lab Results Last 24 hrs: Laboratory Results - last 24 hr 06/02/19 06/02/19 06/02/19 Range/Units 15:47 15:47 15:47 WBC 11.87 H (4.0-11.0) K/uL RBC 3.95 L (4.50-5.90) M/uL Hgb 12.5 L (13.0-17.0) g/dL Hct 36.3 L (38.0-50.0) % MCV 91.9 (80.0-98.0) fL MCH 31.6 (27.0-32.0) pg MCHC 34.4 (31.0-37.0) g/dL RDW Std Deviation 46.0 (28.0-62.0) fl RDW Coeff of Jarod 14 (11.0-15.0) % Plt Count 165 (150-400) K/uL MPV 11.60 (7.40-12.00) fL Neut % (Auto) 69.1 (48.0-80.0) % Lymph % (Auto) 16.6 (16.0-40.0) % [place] % (Auto) 10.8 (0.0-15.0) % Eos % (Auto) 3.2 (0.0-7.0) % Baso % (Auto) 0.3 (0.0-1.5) % Neut # (Auto) 8.2 H (1.4-5.7) K/uL Lymph # (Auto) 2.0 (0.6-2.4) K/uL [place] # (Auto) 1.3 H (0.0-0.8) K/uL Eos # (Auto) 0.4 (0.0-0.7) K/uL Baso # (Auto) 0.0 (0.0-0.1) K/uL Nucleated RBC % 0.0 /100WBC Nucleated RBCs # 0 K/uL INR 1.05 APTT 28.0 (18.6-31.3) SEC Sodium 142 (136-148) mmol/L Potassium 3.8 (3.5-5.1) mmol/L Chloride 106 (98-107) mmol/L Carbon Dioxide 25.2 (21.0-32.0) mmol/L BUN 21 H (7.0-18.0) mg/dL Creatinine 1.3 (0.8-1.3) mg/dL Est Cr Clr Drug Dosing 43.12 mL/min Estimated GFR (MDRD) 53.0 ml/min Glucose 118 H (74-106) mg/dL POC Glucose (60-110) mg/dL Calcium 8.9 (8.5-10.1) mg/dL Total Bilirubin 0.9 (0.2-1.0) mg/dL AST 19 (15-37) IU/L ALT 22 (14-63) IU/L Alkaline Phosphatase 85 (46-116) U/L Total Protein 7.4 (6.4-8.2) g/dL Albumin 3.8 (3.4-5.0) g/dL Globulin 3.6 (2.6-4.0) g/dL Albumin/Globulin Ratio 1.1 (0.9-1.6) Urine Color Urine Appearance Urine pH (5.0-8.0) Ur Specific [place] (1.001-1.035) Urine Protein (NEGATIVE) mg/dL Urine Glucose (UA) (NEGATIVE) mg/dL Urine Ketones (NEGATIVE) mg/dL Urine Occult Blood (NEGATIVE) Urine Nitrite (NEGATIVE) Urine Bilirubin (NEGATIVE) Urine Urobilinogen (<2.0) EU/dL Ur Leukocyte Esterase (NEGATIVE) Urine RBC (0-2/HPF) Urine WBC (0-5/HPF) Ur Epithelial Cells (NONE-FEW) Urine Bacteria (NEGATIVE) 06/02/19 06/02/19 06/03/19 Range/Units 16:57 19:35 05:15 WBC 8.76 (4.0-11.0) K/uL RBC 3.66 L (4.50-5.90) M/uL Hgb 11.5 L (13.0-17.0) g/dL Hct 33.3 L (38.0-50.0) % MCV 91.0 (80.0-98.0) fL MCH 31.4 (27.0-32.0) pg MCHC 34.5 (31.0-37.0) g/dL RDW Std Deviation 45.2 (28.0-62.0) fl RDW Coeff of Jarod 14 (11.0-15.0) % Plt Count 142 L (150-400) K/uL MPV 11.40 (7.40-12.00) fL Neut % (Auto) 63.6 (48.0-80.0) % Lymph % (Auto) 19.3 (16.0-40.0) % [place] % (Auto) 11.6 (0.0-15.0) % Eos % (Auto) 5.4 (0.0-7.0) % Baso % (Auto) 0.1 (0.0-1.5) % Neut # (Auto) 5.6 (1.4-5.7) K/uL Lymph # (Auto) 1.7 (0.6-2.4) K/uL [place] # (Auto) 1.0 H (0.0-0.8) K/uL Eos # (Auto) 0.5 (0.0-0.7) K/uL Baso # (Auto) 0.0 (0.0-0.1) K/uL Nucleated RBC % 0.0 /100WBC Nucleated RBCs # 0 K/uL INR APTT (18.6-31.3) SEC Sodium (136-148) mmol/L Potassium (3.5-5.1) mmol/L Chloride (98-107) mmol/L Carbon Dioxide (21.0-32.0) mmol/L BUN (7.0-18.0) mg/dL Creatinine (0.8-1.3) mg/dL Est Cr Clr Drug Dosing mL/min Estimated GFR (MDRD) ml/min Glucose (74-106) mg/dL POC Glucose 97 (60-110) mg/dL Calcium (8.5-10.1) mg/dL Total Bilirubin (0.2-1.0) mg/dL AST (15-37) IU/L ALT (14-63) IU/L Alkaline Phosphatase (46-116) U/L Total Protein (6.4-8.2) g/dL Albumin (3.4-5.0) g/dL Globulin (2.6-4.0) g/dL Albumin/Globulin Ratio (0.9-1.6) Urine Color YELLOW Urine Appearance CLEAR Urine pH 5.0 (5.0-8.0) Ur Specific [place] 1.025 (1.001-1.035) Urine Protein TRACE H (NEGATIVE) mg/dL Urine Glucose (UA) NEGATIVE (NEGATIVE) mg/dL Urine Ketones NEGATIVE (NEGATIVE) mg/dL Urine Occult Blood NEGATIVE (NEGATIVE) Urine Nitrite NEGATIVE (NEGATIVE) Urine Bilirubin NEGATIVE (NEGATIVE) Urine Urobilinogen 0.2 (<2.0) EU/dL Ur Leukocyte Esterase NEGATIVE (NEGATIVE) Urine RBC 0-2 (0-2/HPF) Urine WBC 0-2 (0-5/HPF) Ur Epithelial Cells RARE (NONE-FEW) Urine Bacteria RARE (NEGATIVE) 06/03/19 06/03/19 06/03/19 Range/Units 05:15 07:08 12:35 WBC (4.0-11.0) K/uL RBC (4.50-5.90) M/uL Hgb (13.0-17.0) g/dL Hct (38.0-50.0) % MCV (80.0-98.0) fL MCH (27.0-32.0) pg MCHC (31.0-37.0) g/dL RDW Std Deviation (28.0-62.0) fl RDW Coeff of Jarod (11.0-15.0) % Plt Count (150-400) K/uL MPV (7.40-12.00) fL Neut % (Auto) (48.0-80.0) % Lymph % (Auto) (16.0-40.0) % [place] % (Auto) (0.0-15.0) % Eos % (Auto) (0.0-7.0) % Baso % (Auto) (0.0-1.5) % Neut # (Auto) (1.4-5.7) K/uL Lymph # (Auto) (0.6-2.4) K/uL [place] # (Auto) (0.0-0.8) K/uL Eos # (Auto) (0.0-0.7) K/uL Baso # (Auto) (0.0-0.1) K/uL Nucleated RBC % /100WBC Nucleated RBCs # K/uL INR APTT (18.6-31.3) SEC Sodium 141 (136-148) mmol/L Potassium 3.4 L (3.5-5.1) mmol/L Chloride 107 (98-107) mmol/L Carbon Dioxide 25.7 (21.0-32.0) mmol/L BUN 17 (7.0-18.0) mg/dL Creatinine 1.2 (0.8-1.3) mg/dL Est Cr Clr Drug Dosing 46.71 mL/min Estimated GFR (MDRD) 58.1 ml/min Glucose 134 H (74-106) mg/dL POC Glucose 135 H 140 H (60-110) mg/dL Calcium 8.1 L (8.5-10.1) mg/dL Total Bilirubin (0.2-1.0) mg/dL AST (15-37) IU/L ALT (14-63) IU/L Alkaline Phosphatase (46-116) U/L Total Protein (6.4-8.2) g/dL Albumin (3.4-5.0) g/dL Globulin (2.6-4.0) g/dL Albumin/Globulin Ratio (0.9-1.6) Urine Color Urine Appearance Urine pH (5.0-8.0) Ur Specific [place] (1.001-1.035) Urine Protein (NEGATIVE) mg/dL Urine Glucose (UA) (NEGATIVE) mg/dL Urine Ketones (NEGATIVE) mg/dL Urine Occult Blood (NEGATIVE) Urine Nitrite (NEGATIVE) Urine Bilirubin (NEGATIVE) Urine Urobilinogen (<2.0) EU/dL Ur Leukocyte Esterase (NEGATIVE) Urine RBC (0-2/HPF) Urine WBC (0-5/HPF) Ur Epithelial Cells (NONE-FEW) Urine Bacteria (NEGATIVE) Result Diagrams: 06/03/19 05:15 06/03/19 05:15 Sepsis Event Note - Evaluation Sepsis Screening Result: No Definite Risk - Focused Exam Vital Signs: Vital Signs Temp Pulse Pulse Resp BP BP Pulse Ox 06/03/19 09:14 78 140/66 06/03/19 07:10 97.8 F 77 14 139/59 L 95 06/03/19 04:00 97.8 F 80 14 130/58 L 93 L 06/03/19 03:03 71 120/51 L Date Exam was Performed: 06/03/19 Time Exam was Performed: 13:09 Consult PN Assessment/Plan Procedures: Procedures ALANINE AMINO (ALT) (SGPT) (07/27/14) CHEST X-RAY 2VW FRONTAL&LATL (01/15/14) COMPLETE CBC W/AUTO DIFF WBC (03/28/19) COMPREHEN METABOLIC PANEL (03/28/19) ELECTROCARDIOGRAM TRACING (01/15/14) EMERGENCY DEPT VISIT (12/28/14) GLYCOSYLATED HEMOGLOBIN TEST (03/28/19) IIV NO PRSV INCREASED AG IM (04/09/18) IIV4 VACC NO PRSV 0.5 ML IM (03/28/19) LIPID PANEL (03/28/19) METABOLIC PANEL TOTAL CA (07/11/18) OFFICE/OUTPATIENT VISIT EST (04/09/18) PPSV23 VACC 2 YRS+ SUBQ/IM (08/16/15) REMOVE IMPACTED EAR WAX UNI (08/16/15) ROUTINE VENIPUNCTURE (03/28/19) UR ALBUMIN SEMIQUANTITATIVE (03/28/19) X-RAY EXAM OF SHOULDER (04/09/18) (1) Hip fracture SNOMED Code(s): 962866120 Code(s): S72.009A - FRACTURE OF UNSP PART OF NECK OF UNSP FEMUR, INIT Current Visit: Yes Qualifiers: Encounter type: initial encounter Fracture type: closed Laterality: right Qualified Code(s): S72.001A - Fracture of unspecified part of neck of right femur, initial encounter for closed fracture Problem List Initiated/Reviewed/Updated: Yes Plan: Discussed total hip replacement versus open reduction and internal fixation. Given that the fracture appears stable as he is tried to walk on it, I have recommended open reduction and internal fixation. Patient agrees with this treatment plan. He is nothing by mouth and plan to proceed with surgery as afternoon.
[2019-06-03] MEDS ORDERED: Midazolam 1 MG/ML 2 ML SDV ONE (13:33)
[2019-06-03] MEDS ORDERED: Propofol 200 MG/20 ML SDV ONE ×2 (13:33→15:50)
[2019-06-03] MEDS ORDERED: fentaNYL 100 MCG/2 ML SDV ONE (13:33)
[2019-06-03] MEDS ORDERED: Sodium Chloride 0.9% 20 ML ONE (13:37)
[2019-06-03] MEDS ORDERED: Ketamine 500 mg/10 ML MDV ONE (13:37)
[2019-06-03] MEDS ORDERED: Bupivacaine 0.5% 10 ML SDV ONE (13:41)
[2019-06-03] MEDS ORDERED: ceFAZolin/Dextrose,Iso-Osmotic 2 GM/50 ML Duplex Bag IV ONE (14:32)
[2019-06-03] MEDS ORDERED: Ondansetron 4 MG/2 ML SDV ONE (14:51)
[2019-06-03] MEDS ORDERED: Phenylephrine/Normal Saline 100 MCG/ML 10 ML Syringe ONE (15:04)
[2019-06-03] MEDS ORDERED: Ondansetron 4 MG/2 ML SDV IVPUSH ONE (15:27)
[2019-06-03] MEDS ORDERED: fentaNYL 100 MCG/2 ML SDV IVPUSH PRN (15:27)
[2019-06-03] MEDS ORDERED: Sodium Chloride 0.9% 2.5 ML Syringe FLUSH PRN (16:43)
[2019-06-03] MEDS ORDERED: Aluminum Hydroxide/Magnesium Hydroxide/Simethicone Susp 30 ML Cup PO PRN (16:43)
[2019-06-03] MEDS ORDERED: oxyCODONE 5 MG Tab PO PRN (16:43)
[2019-06-03] MEDS ORDERED: Bisacodyl 10 MG Supp RECTAL PRN (16:43)
[2019-06-03] MEDS ORDERED: Sodium Chloride 0.9% 10 ML Syringe FLUSH PRN (16:43)
[2019-06-03] MEDS ORDERED: Docusate Sodium 100 MG Cap PO PRN (16:43)
[2019-06-03] MEDS ORDERED: Ondansetron 4 MG/2 ML SDV IVPUSH PRN (16:43)
[2019-06-03] MEDS ORDERED: HYDROmorphone 2 MG/ML Syringe IVPUSH PRN (16:52)
--- NOTE | 2019-06-03 16:58 | PCM.OPNOTE ---
- General Post-Op/Procedure Note Date of Surgery/Procedure: 06/03/19 Operative Procedure(s): Open reduction and internal fixation of right femoral neck fracture Findings: Impacted stable femoral neck fracture Pre Op Diagnosis: Right femoral neck fracture Post-Op Diagnosis: Right femoral neck fracture Anesthesia Technique: Spinal Primary Surgeon: Reggie Bah Glove Operator: Lillian Conrad Reason Glove Operator Was Necessary: Retraction and positioning EBL in mLs: 25 Complications: None Condition: Good Free Text/Narrative:: Patient was consented for ORIF of right femoral neck fracture. Patient was taken to the OR. After spinal anesthesia, the patient was placed in a supine position on the fracture table with the right foot in boot traction and the left leg in a well leg mejias. The patient was prepped and draped in the usual sterile manner. A skin incision was made in the lateral proximal femur. Skin was incised with a scalpel. Subcutaneous tissue was incised with electrocautery. The IT band was split between fibers. The vastus lateralis was split between fibers exposing the femoral cortex. A drill was used to drill the lateral cortex and then used to drill a tract for the guide pin. C-arm was used for guidance and the position adjusted to a center-center position. The drill bit was removed and replaced with a guide pin and the final position confirmed. A cannulated screw guide pin was placed parallel and superior to the lag screw guide pin with C-jovan confirmation. The cannulated screw was measured, drilled, and inserted. The lag screw length was measured, drilled, and inserted. The angle was measured at 140 degrees and a 2-hole 140 degree side plate was applied and 2 bicortical screws were drilled, measured, and inserted. Screw lengths were adjusted. Wound was irrigated. IT band was closed with #1 Vicryl sutures. Subcutaneous tissue was closed with 2-0 Vicryl sutures. Skin was closed with 3-0 Monocryl suture. A Sterile dressing was applied and patient was accompanied to the PACU. Pain management: Ibuprofen, Tylenol, and hydromorphone prn Prophylactic antibiotics: Ancef for 24 hours VTE prophylaxis: aspirin EC 325 mg daily for 90 days Restrictions: WBAT, no hip precautions Intake & Output 06/03/19 06/03/19 06/03/19 06:59 14:59 22:59 Intake Total 500 Output Total 400 Balance 100
--- NOTE | 2019-06-03 17:02 | PCM.POSTAN ---
POST ANESTHESIA ASSESSMENT - MENTAL STATUS Mental Status: Alert, Oriented - VITAL SIGNS Vital Signs: Last Vital Signs Temp 98.1 F 06/03/19 12:00 Pulse 70 06/03/19 12:00 Resp 16 06/03/19 12:00 BP 137/62 06/03/19 12:00 Pulse Ox 94 L 06/03/19 12:00 - RESPIRATORY Respiratory Status: Respiratory Rate WNL, Airway Patent, O2 Saturation Stable - CARDIOVASCULAR CV Status: Pulse Rate WNL, Blood Pressure Stable - GASTROINTESTINAL GI Status: No Symptoms - POST OP HYDRATION Hydration Status: Adequate & Stable
[2019-06-03] MEDS: Ibuprofen 600 MG Tab PO SCH ×2 (17:50→23:21)
[2019-06-03] MEDS: Morphine 2 MG/ML Syringe IVPUSH PRN ×2 (18:58→23:19)
[2019-06-03] MEDS: Lactated Ringers 1,000 ML IV SCH (19:35)
[2019-06-03] MEDS ORDERED: Acetaminophen 325 MG Tab PO PRN (21:00)
[2019-06-03] MEDS: Aspirin 325 MG Tab PO SCH (21:01)
[2019-06-03] MEDS: ceFAZolin 1 GM in Premix Bag 1 BAG IV SCH (23:22)
[2019-06-04] MEDS: Morphine 2 MG/ML Syringe IVPUSH PRN (05:54)
[2019-06-04] MEDS: Ibuprofen 600 MG Tab PO SCH ×4 (05:55→23:20)
[2019-06-04 06:26] LABS: CARBON DIOXIDE,CO2 27.9 mmol/L (21.0-32.0); POTASSIUM,K 3.6 mmol/L (3.5-5.1)
[2019-06-04] MEDS: ceFAZolin 1 GM in Premix Bag 1 BAG IV SCH (07:50)
[2019-06-04] MEDS: Pantoprazole 40 MG in Sodium Chloride 0.9% 10 ML IV SCH (07:52)
[2019-06-04] MEDS: Insulin Aspart 100 Units/ML 3 ML Pen SUBCUT SCH ×3 (08:01→18:07)
--- NOTE | 2019-06-04 08:19 | PCM.PN ---
- General Info Date of Service: 06/04/19 Admission Dx/Problem (Free Text): Admission Diagnosis/Problem Admission Diagnosis/Problem Fracture of hip Subjective Update: Up to chair with nursing this morning, reports dizziness, noted to have some orthostatic hypotension. He reports this happens at times at home. No chest pain or SOB. As he rests, it is improving. He is feeling well today. Hip pain is tolerable, ambulated well to the chair. Functional Status: Reports: Pain Controlled, Tolerating Diet, Ambulating, Urinating - Review of Systems Pulmonary: Reports: No Symptoms. Denies: Shortness of Breath Cardiovascular: Reports: Lightheadedness. Denies: Chest Pain Gastrointestinal: Reports: No Symptoms. Denies: Abdominal Pain, Nausea, Vomiting Genitourinary: Reports: No Symptoms. Denies: Dysuria, Frequency, Burning Musculoskeletal: Reports: No Symptoms. Denies: Neck Pain Skin: Reports: No Symptoms Neurological: Reports: Dizziness Psychiatric: Reports: No Symptoms - Patient Data Vitals - Most Recent: Last Vital Signs Temp 98.2 F 06/04/19 04:00 Pulse 69 06/04/19 04:00 Resp 16 06/04/19 04:00 BP 124/52 L 06/04/19 04:00 Pulse Ox 94 L 06/04/19 04:00 Weight - Most Recent: 81.329 kg I&O - Last 24 Hours: Intake & Output 06/03/19 06/04/19 06/04/19 22:59 06:59 14:59 Intake Total 1600 1260 Output Total 800 500 Balance 800 760 Lab Results Last 24 Hours: Laboratory Results - last 24 hr 06/03/19 06/03/19 06/04/19 Range/Units 12:35 17:48 05:56 WBC 8.24 (4.0-11.0) K/uL RBC 3.42 L (4.50-5.90) M/uL Hgb 10.8 L (13.0-17.0) g/dL Hct 31.2 L (38.0-50.0) % MCV 91.2 (80.0-98.0) fL MCH 31.6 (27.0-32.0) pg MCHC 34.6 (31.0-37.0) g/dL RDW Std Deviation 44.9 (28.0-62.0) fl RDW Coeff of Jarod 14 (11.0-15.0) % Plt Count 137 L (150-400) K/uL MPV 11.20 (7.40-12.00) fL Neut % (Auto) 67.6 (48.0-80.0) % Lymph % (Auto) 15.5 L (16.0-40.0) % [place] % (Auto) 12.5 (0.0-15.0) % Eos % (Auto) 4.2 (0.0-7.0) % Baso % (Auto) 0.2 (0.0-1.5) % Neut # (Auto) 5.6 (1.4-5.7) K/uL Lymph # (Auto) 1.3 (0.6-2.4) K/uL [place] # (Auto) 1.0 H (0.0-0.8) K/uL Eos # (Auto) 0.4 (0.0-0.7) K/uL Baso # (Auto) 0.0 (0.0-0.1) K/uL Nucleated RBC % 0.0 /100WBC Nucleated RBCs # 0 K/uL Sodium (136-148) mmol/L Potassium (3.5-5.1) mmol/L Chloride (98-107) mmol/L Carbon Dioxide (21.0-32.0) mmol/L BUN (7.0-18.0) mg/dL Creatinine (0.8-1.3) mg/dL Est Cr Clr Drug Dosing mL/min Estimated GFR (MDRD) ml/min Glucose (74-106) mg/dL POC Glucose 140 H 127 H (60-110) mg/dL Calcium (8.5-10.1) mg/dL 06/04/19 06/04/19 Range/Units 05:56 06:03 WBC (4.0-11.0) K/uL RBC (4.50-5.90) M/uL Hgb (13.0-17.0) g/dL Hct (38.0-50.0) % MCV (80.0-98.0) fL MCH (27.0-32.0) pg MCHC (31.0-37.0) g/dL RDW Std Deviation (28.0-62.0) fl RDW Coeff of Jarod (11.0-15.0) % Plt Count (150-400) K/uL MPV (7.40-12.00) fL Neut % (Auto) (48.0-80.0) % Lymph % (Auto) (16.0-40.0) % [place] % (Auto) (0.0-15.0) % Eos % (Auto) (0.0-7.0) % Baso % (Auto) (0.0-1.5) % Neut # (Auto) (1.4-5.7) K/uL Lymph # (Auto) (0.6-2.4) K/uL [place] # (Auto) (0.0-0.8) K/uL Eos # (Auto) (0.0-0.7) K/uL Baso # (Auto) (0.0-0.1) K/uL Nucleated RBC % /100WBC Nucleated RBCs # K/uL Sodium 141 (136-148) mmol/L Potassium 3.6 (3.5-5.1) mmol/L Chloride 107 (98-107) mmol/L Carbon Dioxide 27.9 (21.0-32.0) mmol/L BUN 15 (7.0-18.0) mg/dL Creatinine 1.3 (0.8-1.3) mg/dL Est Cr Clr Drug Dosing 43.12 mL/min Estimated GFR (MDRD) 53.0 ml/min Glucose 131 H (74-106) mg/dL POC Glucose 111 H (60-110) mg/dL Calcium 7.8 L (8.5-10.1) mg/dL Med Orders - Current: Current Medications Acetaminophen (Tylenol) 650 mg PO Q6H PRN PRN Reason: Pain Al Hydroxide/Mg Hydroxide (Mag-Al Plus) 30 ml PO Q4H PRN PRN Reason: Indigestion Albuterol (Proventil Neb Soln) 2.5 mg NEB Q2H PRN PRN Reason: Shortness Of Breath/wheezing Alprazolam (Xanax) 0.5 - 1 mg PO DAILY PRN PRN Reason: Anxiety Last Admin: 06/03/19 09:13 Dose: 0.5 mg Amlodipine Besylate (Norvasc) 10 mg PO DAILY [facility] Last Admin: 06/03/19 10:28 Dose: Not Given Aspirin (Aspirin) 325 mg PO DAILY [facility] Last Admin: 06/03/19 21:01 Dose: 325 mg Atorvastatin Calcium (Lipitor) 40 mg PO DAILY [facility] Last Admin: 06/03/19 10:28 Dose: Not Given Bisacodyl (Dulcolax) 10 mg RECTAL DAILY PRN PRN Reason: Constipation Docusate Sodium (Colace) 100 mg PO BID PRN PRN Reason: Constipation Docusate Sodium (Colace) 100 mg PO BID PRN PRN Reason: Constipation Fentanyl (Sublimaze) 50 mcg IVPUSH Q5M PRN PRN Reason: Pain (severe 7-10) Stop: 06/04/19 15:29 Hydrochlorothiazide (Hydrochlorothiazide) 25 mg PO DAILY [facility] Last Admin: 06/03/19 10:28 Dose: Not Given Hydromorphone HCl (Dilaudid) 0.5 - 1 mg IVPUSH Q3H PRN PRN Reason: Pain Pantoprazole Sodium 40 mg/ (Sodium Chloride) 10 mls @ 300 mls/hr IV Q24H [facility] Last Admin: 06/04/19 07:52 Dose: 300 mls/hr Ibuprofen (Motrin) 600 mg PO Q6H [facility] Last Admin: 06/04/19 05:55 Dose: 600 mg Insulin Aspart (Novolog) 0 unit SUBCUT TIDAC [facility]; Protocol Last Admin: 06/04/19 08:01 Dose: Not Given Lisinopril (Prinivil) 40 mg PO DAILY [facility] Last Admin: 06/03/19 10:29 Dose: Not Given Metoprolol Tartrate (Lopressor) 25 mg PO BID [facility] Last Admin: 06/03/19 21:02 Dose: 25 mg Morphine Sulfate (Morphine) 2 mg IVPUSH Q2H PRN PRN Reason: Pain (severe 7-10) Last Admin: 06/04/19 05:54 Dose: 2 mg Ondansetron HCl (Zofran) 4 mg IVPUSH Q4H PRN PRN Reason: Nausea Ondansetron HCl (Zofran) 4 mg IVPUSH Q6H PRN PRN Reason: Nausea/Vomiting Polyethylene Glycol (Miralax) 17 gm PO DAILY [facility] Sodium Chloride (Saline Flush) 2.5 ml FLUSH ASDIRECTED PRN PRN Reason: Keep Vein Open Sodium Chloride (Saline Flush) 10 ml FLUSH ASDIRECTED PRN PRN Reason: Keep Vein Open Sodium Chloride (Saline Flush) 2.5 ml FLUSH ASDIRECTED PRN PRN Reason: Keep Vein Open Discontinued Medications Bupivacaine HCl (Sensorcaine-Mpf 0.5%) Confirm Administered Dose 10 ml .ROUTE .STK-MED ONE Stop: 06/03/19 13:42 Cefazolin Sodium/Dextrose (Ancef) Confirm Administered Dose 2 gm IV .STK-MED ONE Stop: 06/03/19 14:33 Fentanyl (Sublimaze) Confirm Administered Dose 100 mcg .ROUTE .STK-MED ONE Stop: 06/03/19 13:34 Lactated Ringer's (Ringers, Lactated) 1,000 mls @ 50 mls/hr IV Q20H [facility] Last Admin: 06/03/19 19:35 Dose: 50 mls/hr Sodium Chloride (Normal Saline) Confirm Administered Dose 20 mls @ as directed .ROUTE .STK-MED ONE Stop: 06/03/19 13:38 Cefazolin Sodium/Dextrose 1 gm (/ Premix) 50 mls @ 100 mls/hr IV Q8H [facility] Stop: 06/04/19 07:29 Last Admin: 06/04/19 07:50 Dose: 100 mls/hr Ketamine HCl (Ketalar) Confirm Administered Dose 500 mg .ROUTE .STK-MED ONE Stop: 06/03/19 13:38 Midazolam HCl (Versed 1 Mg/Ml) Confirm Administered Dose 2 mg .ROUTE .STK-MED ONE Stop: 06/03/19 13:34 Morphine Sulfate (Morphine) 2 mg IVPUSH Q2H PRN PRN Reason: Pain (severe 7-10) Ondansetron HCl (Zofran) Confirm Administered Dose 4 mg .ROUTE .STK-MED ONE Stop: 06/03/19 14:52 Ondansetron HCl (Zofran) 4 mg IVPUSH ONETIME ONE Stop: 06/03/19 15:28 Last Admin: 06/03/19 17:36 Dose: Not Given Oxycodone HCl (Oxycodone) 5 - 10 mg PO Q4H PRN PRN Reason: Pain Phenylephrine HCl (Phenylephrine In Ns 100 Mcg/Ml) Confirm Administered Dose 1 mg .ROUTE .STK-MED ONE Stop: 06/03/19 15:05 Propofol (Diprivan 20 Ml) Confirm Administered Dose 400 mg .ROUTE .STK-MED ONE Stop: 06/03/19 13:34 Propofol (Diprivan 20 Ml) Confirm Administered Dose 200 mg .ROUTE .STK-MED ONE Stop: 06/03/19 15:51 - Exam Quality Assessment: No: Supplemental Oxygen General: Alert, Oriented, Cooperative Lungs: Clear to Auscultation, Normal Respiratory Effort Cardiovascular: Regular Rate, Regular Rhythm GI/Abdominal Exam: Normal Bowel Sounds, Soft, Non-Tender Extremities: Normal Inspection, Normal Range of Motion, Non-Tender, No Pedal Edema Neurological: No New Focal Deficit Psy/Mental Status: Alert, Normal Affect, Normal Mood Sepsis Event Note - Evaluation Sepsis Screening Result: No Definite Risk - Focused Exam Vital Signs: Vital Signs Temp Pulse Pulse Resp BP BP Pulse Ox 06/04/19 04:00 98.2 F 69 16 124/52 L 94 L 06/04/19 00:00 100.4 F 71 14 116/54 L 91 L 06/03/19 21:20 99.7 F 80 16 128/58 L 91 L 06/03/19 21:02 80 128/58 L 06/03/19 20:20 99.9 F 57 L 16 105/52 L 94 L Date Exam was Performed: 06/04/19 Time Exam was Performed: 11:30 - Problem List & Annotations (1) Hip fracture SNOMED Code(s): 819367405 Code(s): S72.009A - FRACTURE OF UNSP PART OF NECK OF UNSP FEMUR, INIT Status: Acute Current Visit: Yes Qualifiers: Encounter type: initial encounter Fracture type: closed Laterality: right Qualified Code(s): S72.001A - Fracture of unspecified part of neck of right femur, initial encounter for closed fracture (2) CAD (coronary artery disease) SNOMED Code(s): 31608365 Code(s): I25.10 - ATHSCL HEART DISEASE OF [place] CORONARY ARTERY W/O ANG PCTRS Status: Chronic Current Visit: Yes (3) Osteopenia SNOMED Code(s): 827608617 Code(s): M85.80 - OTH DISRD OF BONE DENSITY AND STRUCTURE, UNSPECIFIED SITE Status: Chronic Current Visit: Yes (4) HTN (hypertension) SNOMED Code(s): 01726066 Code(s): I10 - ESSENTIAL (PRIMARY) HYPERTENSION Status: Chronic Current Visit: Yes (5) DM type 2 (diabetes mellitus, type 2) SNOMED Code(s): 70173304 Code(s): E11.9 - TYPE 2 DIABETES MELLITUS WITHOUT COMPLICATIONS Status: Chronic Current Visit: Yes Qualifiers: Diabetes mellitus group home insulin use: without carton repairer use Diabetes mellitus complication status: without complication Qualified Code(s): E11.9 - Type 2 diabetes mellitus without complications (6) Anxiety SNOMED Code(s): 44582491 Code(s): F41.9 - ANXIETY DISORDER, UNSPECIFIED Status: Chronic Current Visit: Yes (7) GERD (gastroesophageal reflux disease) SNOMED Code(s): 673834382 Code(s): K21.9 - GASTRO-ESOPHAGEAL REFLUX DISEASE WITHOUT ESOPHAGITIS Status: Chronic Current Visit: Yes Qualifiers: Esophagitis presence: without esophagitis Qualified Code(s): K21.9 - Gastro -esophageal reflux disease without esophagitis (8) Dyslipidemia SNOMED Code(s): 891182717 Code(s): E78.5 - HYPERLIPIDEMIA, UNSPECIFIED Status: Chronic Current Visit: Yes - Problem List Review Problem List Initiated/Reviewed/Updated: Yes - My Orders Last 24 Hours: My Active Orders 06/03/19 09:00 Lisinopril [Prinivil] 40 mg PO DAILY amLODIPine [Norvasc] 10 mg PO DAILY atorvaSTATin [Lipitor] 40 mg PO DAILY hydroCHLOROthiazide 25 mg PO DAILY 06/03/19 12:23 Resuscitation Status Routine - Plan Plan:: This 79 year old male admitted with R hip fracture 1. R hip fracture: Dr Bah, Orthopedics consulted, Post op day 1. Tylenol for pain. 2. CAD: Stable, no chest pain. EKG SR. Continue ASA. No events on telemetry. Continue Statin 3. HTN: Some Orthostatic hypotension noted this morning, hold antibypertensives today, continue LR at 50 today and monitor. 4. DM Type 2: BS stable Hold PO medications during admission. Novolog SSI. 5. Anxiety: Continue Alprazolam, takes very infrequently. 6. GERD: Will give Protonix in am due to NPO for surgery. Normally takes Omeprazole. VTE prophylaxis: ASA daily per Orthopedics
[2019-06-04] MEDS: Lisinopril 10 MG Tab PO SCH ×2 (08:21→10:18)
[2019-06-04] MEDS: Polyethylene Glycol 3350 Powder 17 GM Packet PO SCH ×2 (08:21→10:17)
[2019-06-04] MEDS: amLODIPine 5 MG Tab PO SCH ×2 (08:22→10:17)
[2019-06-04] MEDS: Hydrochlorothiazide 25 MG Tab PO SCH ×2 (08:22→10:17)
[2019-06-04] MEDS: atorvaSTATin 40 MG Tab PO SCH (08:22)
[2019-06-04] MEDS: Aspirin 325 MG Tab PO SCH (08:23)
[2019-06-04] MEDS: Metoprolol Tartrate 25 MG Tab PO SCH ×4 (08:23→20:35)
[2019-06-04] MEDS: ALPRAZolam 0.5 MG Tab PO PRN ×2 (10:18→20:51)
[2019-06-04] MEDS: Lactated Ringers 1,000 ML IV SCH (10:56)
--- NOTE | 2019-06-04 12:10 | PCM.SN ---
- Free Text/Narrative Note: Ortho Note POD#1 from ORIF right femoral neck fracture Pain managed PE: Dressing dry Moves toes Light touch same as pre-op, slightly decreased due to diabetic neuropathy Plan: Weight bear as tolerated, no hip dislocation precautions Begin PT today Given that patient was ambulating in hip fracture for 2 days and walked into outpatient clinic for evaluation, I believe he will be able to discharged to home Aspirin for VTE prophylaxis Ibuprofen, acetaminophen, and hydromorphone (oral) for pain
--- NOTE | 2019-06-04 12:19 | PCM48HPAN ---
Post Anesthesia Note - EVALUATION WITHIN 48HRS OF ANESTHETIC Vital Signs in Normal Range: Yes Patient Participated in Evaluation: Yes Respiratory Function Stable: Yes Airway Patent: Yes Cardiovascular Function Stable: Yes Hydration Status Stable: Yes Pain Control Satisfactory: Yes Nausea and Vomiting Control Satisfactory: Yes Mental Status Recovered: Yes Vital Signs: Last Vital Signs Temp 98.2 F 06/04/19 08:00 Pulse 72 06/04/19 10:54 Resp 17 06/04/19 08:00 BP 107/56 L 06/04/19 10:54 Pulse Ox 92 L 06/04/19 08:00 - COMMENTS/OBSERVATIONS Free Text/Narrative:: Denies post-op anesthesia problems.
[2019-06-05] MEDS: Ibuprofen 600 MG Tab PO SCH ×2 (06:00→11:37)
[2019-06-05] MEDS: Pantoprazole 40 MG in Sodium Chloride 0.9% 10 ML IV SCH (06:01)
[2019-06-05] MEDS: Lactated Ringers 1,000 ML IV SCH (07:02)
[2019-06-05] MEDS: Insulin Aspart 100 Units/ML 3 ML Pen SUBCUT SCH ×2 (08:57→12:03)
[2019-06-05] MEDS: Metoprolol Tartrate 25 MG Tab PO SCH (09:00)
[2019-06-05] MEDS ORDERED: Docusate Sodium 100 MG Cap PO SCH (09:00)
[2019-06-05] MEDS: amLODIPine 5 MG Tab PO SCH (09:01)
[2019-06-05] MEDS: atorvaSTATin 40 MG Tab PO SCH (09:01)
[2019-06-05] MEDS: Aspirin 325 MG Tab PO SCH (09:01)
[2019-06-05] MEDS: Hydrochlorothiazide 25 MG Tab PO SCH (09:01)
[2019-06-05] MEDS: Lisinopril 10 MG Tab PO SCH (09:02)
[2019-06-05] MEDS: Polyethylene Glycol 3350 Powder 17 GM Packet PO SCH (09:07)
--- NOTE | 2019-06-05 09:34 | CR ---
EXAM DATE: 06/02/19 PATIENT'S AGE: 79 Right hip: Eight fluoroscopic spot views were obtained of the right hip utilizing C-arm device. Comparison: Prior right hip study of 06/02/19. Femoral neck fracture is again noted. Study shows placement of compression screw and plate across the fracture line into the femoral head. Additional cannulated screw is seen crossing the fracture line. Fluoroscopy time is given as 45.3 seconds. Impression: 1. Procedural study as noted above. Diagnostic code #2 This report was dictated in [place] Standard Time Report Signed by Proxy. FELIX
[2019-06-05] MEDS: ALPRAZolam 0.5 MG Tab PO PRN (12:02)
--- NOTE | 2019-06-05 13:33 | PCM.DCSUM1 ---
Discharge Summary - Hospital Course Brief History: This 79 year old male with pmh of CAD, HTN, dyslipidemia, Dm Type [address] Reese's clinic today with hip pain. 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 He denies passing out. he reports he thinks his hand slipped and then he lost his balance and fell off the ladder landing on his R hip. He reports he had pain and dealt with it over the weekend, ambulating with crutches, but the pain continued and he saught evaluation in the clinic. He reports he has been feeling really well otherwise. No fevers chill or recent URI. He denies chest pain, palpitations or dyspnea. He denies abdominal pain. No urinary or bowel concerns. No black or bloody BMs. No focal neurological deficits. He reports he had 2 stents placed 8 years ago for angina and dyspnea. He denies [place]. He reports these symptoms immediately improved after stents were placed. He was on Plavix previously, but now only takes ASA daily. Denies CHF. DM Type 2 is controlled, last A1c was 6.4 in March 2019. He denies tobacco use or alcohol use. In the clinic Xray of R hip revealed basicervical fracture within the R hip. Direct admission arranged. Once admitted, mild leukocytosis noted, likely reactive from fracture. No acute infection noted. CXR negative, no cardiopulmonary process, no cardiomegaly noted. EKG SR with no St elevations or T wave inversions noted. [facility] WNL. Will obtain UA. - Discharge Data Discharge Date: 06/05/19 Discharge Disposition: Home, Self-Care 01 Condition: Good - Referral to Home Health Primary Care Physician: Shahram Reese MD - Discharge Diagnosis/Problem(s) (1) Hip fracture SNOMED Code(s): 991764274 ICD Code: S72.009A - FRACTURE OF UNSP PART OF NECK OF UNSP FEMUR, INIT Status: Acute Current Visit: Yes Qualifiers: Encounter type: initial encounter Fracture type: closed Laterality: right Qualified Code(s): S72.001A - Fracture of unspecified part of neck of right femur, initial encounter for closed fracture (2) CAD (coronary artery disease) SNOMED Code(s): 38379202 ICD Code: I25.10 - ATHSCL HEART DISEASE OF [place] CORONARY ARTERY W/O ANG PCTRS Status: Chronic Current Visit: Yes (3) Osteopenia SNOMED Code(s): 496491028 ICD Code: M85.80 - OTH DISRD OF BONE DENSITY AND STRUCTURE, UNSPECIFIED SITE Status: Chronic Current Visit: Yes (4) HTN (hypertension) SNOMED Code(s): 30329779 ICD Code: I10 - ESSENTIAL (PRIMARY) HYPERTENSION Status: Chronic Current Visit: Yes (5) DM type 2 (diabetes mellitus, type 2) SNOMED Code(s): 39131023 ICD Code: E11.9 - TYPE 2 DIABETES MELLITUS WITHOUT COMPLICATIONS Status: Chronic Current Visit: Yes Qualifiers: Diabetes mellitus intermodal customer service insulin use: without intermodal customer service use Diabetes mellitus complication status: without complication Qualified Code(s): E11.9 - Type 2 diabetes mellitus without complications (6) Anxiety SNOMED Code(s): 85229325 ICD Code: F41.9 - ANXIETY DISORDER, UNSPECIFIED Status: Chronic Current Visit: Yes (7) GERD (gastroesophageal reflux disease) SNOMED Code(s): 837039147 ICD Code: K21.9 - GASTRO-ESOPHAGEAL REFLUX DISEASE WITHOUT ESOPHAGITIS Status: Chronic Current Visit: Yes Qualifiers: Esophagitis presence: without esophagitis Qualified Code(s): K21.9 - Gastro -esophageal reflux disease without esophagitis (8) Dyslipidemia SNOMED Code(s): 307057990 ICD Code: E78.5 - HYPERLIPIDEMIA, UNSPECIFIED Status: Chronic Current Visit: Yes - Patient Summary/Data Operative Procedure(s) Performed: Open reduction and internal fixation of right femoral neck fracture Consults: Consultations 06/02/19 15:29 Consult to Physician [CONS] Routine 06/03/19 16:43 PT Evaluation and Treatment [CONS] Routine - Patient Instructions Diet: Usual Diet as Tolerated Activity, Other: Weight bearing as tolerates, with use of Walker for ambulation & transfers Driving: Do Not Drive Showering/Bathing: May Shower Wound/Incision Care: Do NOT Change Dressing Notify Provider of: Fever, Increased Pain, Swelling and Redness, Drainage Other/Special Instructions: Ice therapy to hip for pain control. Outpatient PT for stregthening. - Discharge Plan Prescriptions/Med Rec: Acetaminophen [Tylenol] 650 mg PO Q6H PRN #100 tablet PRN Reason: Pain Aspirin 325 mg PO DAILY #30 tablet Ibuprofen [Motrin] 600 mg PO Q6H #50 tablet Home Medications: Home Meds Glimepiride [Amaryl] 2 mg PO DAILY 06/02/19 [History] Lisinopril 40 mg PO DAILY 06/02/19 [History] Metoprolol Tartrate 25 mg PO BID 06/02/19 [History] Nitroglycerin [Nitrostat] 0.4 mg SL ASDIRECTED PRN 06/02/19 [History] amLODIPine Besylate [Norvasc] 10 mg PO DAILY 06/02/19 [History] atorvaSTATin [Lipitor] 40 mg PO DAILY 06/02/19 [History] hydroCHLOROthiazide [Hydrochlorothiazide] 25 mg PO DAILY 06/02/19 [History] metFORMIN HCl [Metformin HCl ER] 1,500 mg PO WITHDINNER 06/02/19 [History] Acetaminophen [Tylenol] 650 mg PO Q6H PRN #100 tablet 06/05/19 [Rx] Aspirin 325 mg PO DAILY #30 tablet 06/05/19 [Rx] Ibuprofen [Motrin] 600 mg PO Q6H #50 tablet 06/05/19 [Rx] Omeprazole 20 mg PO ACBREAKFAST cap.cr 06/05/19 [Rx] Patient Handouts: Open Reduction and Internal Fixation for Hip Fracture, Care After, Ibuprofen tablets and capsules, Acetaminophen tablets or caplets, Aspirin , ASA oral tablets Referrals: Reggie Bah MD [Physician] - 06/27/19 1:30 pm (3 weeks ) Shahram Reese MD [Primary Care Provider] - 06/11/19 10:00 am - Discharge Summary/Plan Comment DC Time >30 min.: No Discharge Summary/Plan Comment: Admitting Diagnoses: R hip fx Fall Discharge Diagnoses R hip Fx s/p ORIF Other PMH: CAD HTN Dyslipidemia Anxiety DM Type 2 Rg was admitted directly from clinic after he was found to have L hip fx. Dr Bah, Orthopedics was consulted and evaluated patient. He recommended ORIF. Rg was monitored overnight, and went to the OR the following day. He did well post-operatively with no complications. He has been alert and oriented. VS remained stable. Up ambulating with assistance. Labwork is stable. He is medically stable for discharge Orthopedics has discharged him home. He is to follow up per recommendations from Orthopedics, return to ED or clinic if concerns should arise. - Patient Data Vitals - Most Recent: Last Vital Signs Temp 98.0 F 06/05/19 12:00 Pulse 71 06/05/19 12:00 Resp 18 06/05/19 12:00 BP 118/58 L 06/05/19 12:00 Pulse Ox 98 06/05/19 12:00 Weight - Most Recent: 80.5 kg I&O - Last 24 hours: Intake & Output 06/04/19 06/05/19 06/05/19 22:59 06:59 14:59 Intake Total 2150 1143 Output Total 200 1150 Balance 1950 -7 Lab Results - Last 24 hrs: Laboratory Results - last 24 hr 06/04/19 06/05/19 06/05/19 Range/Units 17:42 05:57 06:35 Hgb 10.2 L (13.0-17.0) g/dL Hct 29.5 L (38.0-50.0) % POC Glucose 211 H 277 H (60-110) mg/dL 06/05/19 Range/Units 11:52 Hgb (13.0-17.0) g/dL Hct (38.0-50.0) % POC Glucose 185 H (60-110) mg/dL Med Orders - Current: Current Medications Acetaminophen (Tylenol) 650 mg PO Q6H PRN PRN Reason: Pain Al Hydroxide/Mg Hydroxide (Mag-Al Plus) 30 ml PO Q4H PRN PRN Reason: Indigestion Albuterol (Proventil Neb Soln) 2.5 mg NEB Q2H PRN PRN Reason: Shortness Of Breath/wheezing Alprazolam (Xanax) 0.5 - 1 mg PO DAILY PRN PRN Reason: Anxiety Last Admin: 06/05/19 12:02 Dose: 0.5 mg Amlodipine Besylate (Norvasc) 10 mg PO DAILY [facility] Last Admin: 06/05/19 09:01 Dose: 10 mg Aspirin (Aspirin) 325 mg PO DAILY [facility] Last Admin: 06/05/19 09:01 Dose: 325 mg Atorvastatin Calcium (Lipitor) 40 mg PO DAILY [facility] Last Admin: 06/05/19 09:01 Dose: 40 mg Bisacodyl (Dulcolax) 10 mg RECTAL DAILY PRN PRN Reason: Constipation Last Admin: 06/05/19 12:04 Dose: 10 mg Docusate Sodium (Colace) 100 mg PO BID [facility] Last Admin: 06/05/19 09:12 Dose: 100 mg Hydrochlorothiazide (Hydrochlorothiazide) 25 mg PO DAILY [facility] Last Admin: 06/05/19 09:01 Dose: 25 mg Hydromorphone HCl (Dilaudid) 0.5 - 1 mg IVPUSH Q3H PRN PRN Reason: Pain Lactated Ringer's (Ringers, Lactated) 1,000 mls @ 50 mls/hr IV Q20H [facility] Last Admin: 06/05/19 07:02 Dose: Not Given Ibuprofen (Motrin) 600 mg PO Q6H [facility] Last Admin: 06/05/19 11:37 Dose: 600 mg Insulin Aspart (Novolog) 0 unit SUBCUT TIDAC [facility]; Protocol Last Admin: 06/05/19 12:03 Dose: 1 units Lisinopril (Prinivil) 40 mg PO DAILY [facility] Last Admin: 06/05/19 09:02 Dose: 40 mg Metoprolol Tartrate (Lopressor) 25 mg PO BID [facility] Last Admin: 06/05/19 09:00 Dose: 25 mg Morphine Sulfate (Morphine) 2 mg IVPUSH Q2H PRN PRN Reason: Pain (severe 7-10) Last Admin: 06/04/19 05:54 Dose: 2 mg Omeprazole (Omeprazole) 20 mg PO ACBREAKFAST [facility] Ondansetron HCl (Zofran) 4 mg IVPUSH Q4H PRN PRN Reason: Nausea Ondansetron HCl (Zofran) 4 mg IVPUSH Q6H PRN PRN Reason: Nausea/Vomiting Polyethylene Glycol (Miralax) 17 gm PO DAILY [facility] Last Admin: 06/05/19 09:07 Dose: 17 gm Sodium Chloride (Saline Flush) 2.5 ml FLUSH ASDIRECTED PRN PRN Reason: Keep Vein Open Sodium Chloride (Saline Flush) 10 ml FLUSH ASDIRECTED PRN PRN Reason: Keep Vein Open Sodium Chloride (Saline Flush) 2.5 ml FLUSH ASDIRECTED PRN PRN Reason: Keep Vein Open Discontinued Medications Bupivacaine HCl (Sensorcaine-Mpf 0.5%) Confirm Administered Dose 10 ml .ROUTE .STK-MED ONE Stop: 06/03/19 13:42 Cefazolin Sodium/Dextrose (Ancef) Confirm Administered Dose 2 gm IV .STK-MED ONE Stop: 06/03/19 14:33 Docusate Sodium (Colace) 100 mg PO BID PRN PRN Reason: Constipation Last Admin: 06/04/19 23:23 Dose: 100 mg Docusate Sodium (Colace) 100 mg PO BID PRN PRN Reason: Constipation Fentanyl (Sublimaze) Confirm Administered Dose 100 mcg .ROUTE .STK-MED ONE Stop: 06/03/19 13:34 Fentanyl (Sublimaze) 50 mcg IVPUSH Q5M PRN PRN Reason: Pain (severe 7-10) Stop: 06/04/19 15:29 Pantoprazole Sodium 40 mg/ (Sodium Chloride) 10 mls @ 300 mls/hr IV Q24H [facility] Last Admin: 06/05/19 06:01 Dose: 300 mls/hr Lactated Ringer's (Ringers, Lactated) 1,000 mls @ 50 mls/hr IV Q20H [facility] Last Admin: 06/03/19 19:35 Dose: 50 mls/hr Sodium Chloride (Normal Saline) Confirm Administered Dose 20 mls @ as directed .ROUTE .STK-MED ONE Stop: 06/03/19 13:38 Cefazolin Sodium/Dextrose 1 gm (/ Premix) 50 mls @ 100 mls/hr IV Q8H [facility] Stop: 06/04/19 07:29 Last Admin: 06/04/19 07:50 Dose: 100 mls/hr Ketamine HCl (Ketalar) Confirm Administered Dose 500 mg .ROUTE .STK-MED ONE Stop: 06/03/19 13:38 Midazolam HCl (Versed 1 Mg/Ml) Confirm Administered Dose 2 mg .ROUTE .STK-MED ONE Stop: 06/03/19 13:34 Morphine Sulfate (Morphine) 2 mg IVPUSH Q2H PRN PRN Reason: Pain (severe 7-10) Ondansetron HCl (Zofran) Confirm Administered Dose 4 mg .ROUTE .STK-MED ONE Stop: 06/03/19 14:52 Ondansetron HCl (Zofran) 4 mg IVPUSH ONETIME ONE Stop: 06/03/19 15:28 Last Admin: 06/03/19 17:36 Dose: Not Given Oxycodone HCl (Oxycodone) 5 - 10 mg PO Q4H PRN PRN Reason: Pain Phenylephrine HCl (Phenylephrine In Ns 100 Mcg/Ml) Confirm Administered Dose 1 mg .ROUTE .STK-MED ONE Stop: 06/03/19 15:05 Propofol (Diprivan 20 Ml) Confirm Administered Dose 400 mg .ROUTE .STK-MED ONE Stop: 06/03/19 13:34 Propofol (Diprivan 20 Ml) Confirm Administered Dose 200 mg .ROUTE .STK-MED ONE Stop: 06/03/19 15:51
[2019-06-05 15:46] VITALS: BP 122/60; PULSE 68
--- NOTE | 2019-06-05 17:30 | PCM.SURGPN ---
- General Info Date of Service: 06/05/19 (1625) Date of Surgery/Procedure: 06/03/19 (s/p ORIF Right femoral neck fracture) POD#: 2 Admission Diagnosis/Problem: Hip fracture requiring operative repair Functional Status: Reports: Pain Controlled, Tolerating Diet, Ambulating (with staff SBA and walker), Urinating (but c/o constipation) - Review of Systems General: Reports: No Symptoms HEENT: Reports: No Symptoms Pulmonary: Denies: Shortness of Breath Cardiovascular: Reports: No Symptoms Musculoskeletal: Reports: Other (leg cramps anterolateral distal thigh) Neurological: Reports: No Symptoms Psychiatric: Reports: No Symptoms - Patient Data Vitals - Most Recent: Last Vital Signs Temp 36.3 C 06/05/19 15:45 Pulse 68 06/05/19 15:45 Resp 15 06/05/19 15:45 BP 122/60 06/05/19 15:45 Pulse Ox 97 06/05/19 15:45 Weight - Most Recent: 80.5 kg I&O - Last 24 Hours: Intake & Output 06/05/19 06/05/19 06/05/19 06:59 14:59 22:59 Intake Total 1143 1250 Output Total 1150 1300 Balance -7 -50 Lab Results Last 24 Hrs: Laboratory Results - last 24 hr 06/04/19 06/05/19 06/05/19 Range/Units 17:42 05:57 06:35 Hgb 10.2 L (13.0-17.0) g/dL Hct 29.5 L (38.0-50.0) % POC Glucose 211 H 277 H (60-110) mg/dL 06/05/19 Range/Units 11:52 Hgb (13.0-17.0) g/dL Hct (38.0-50.0) % POC Glucose 185 H (60-110) mg/dL Med Orders - Current: Current Medications Acetaminophen (Tylenol) 650 mg PO Q6H PRN PRN Reason: Pain Al Hydroxide/Mg Hydroxide (Mag-Al Plus) 30 ml PO Q4H PRN PRN Reason: Indigestion Albuterol (Proventil Neb Soln) 2.5 mg NEB Q2H PRN PRN Reason: Shortness Of Breath/wheezing Alprazolam (Xanax) 0.5 - 1 mg PO DAILY PRN PRN Reason: Anxiety Last Admin: 06/05/19 12:02 Dose: 0.5 mg Amlodipine Besylate (Norvasc) 10 mg PO DAILY [facility] Last Admin: 06/05/19 09:01 Dose: 10 mg Aspirin (Aspirin) 325 mg PO DAILY [facility] Last Admin: 06/05/19 09:01 Dose: 325 mg Atorvastatin Calcium (Lipitor) 40 mg PO DAILY [facility] Last Admin: 06/05/19 09:01 Dose: 40 mg Bisacodyl (Dulcolax) 10 mg RECTAL DAILY PRN PRN Reason: Constipation Last Admin: 06/05/19 12:04 Dose: 10 mg Docusate Sodium (Colace) 100 mg PO BID [facility] Last Admin: 06/05/19 09:12 Dose: 100 mg Hydrochlorothiazide (Hydrochlorothiazide) 25 mg PO DAILY [facility] Last Admin: 06/05/19 09:01 Dose: 25 mg Hydromorphone HCl (Dilaudid) 0.5 - 1 mg IVPUSH Q3H PRN PRN Reason: Pain Lactated Ringer's (Ringers, Lactated) 1,000 mls @ 50 mls/hr IV Q20H [facility] Last Admin: 06/05/19 07:02 Dose: Not Given Ibuprofen (Motrin) 600 mg PO Q6H [facility] Last Admin: 06/05/19 11:37 Dose: 600 mg Insulin Aspart (Novolog) 0 unit SUBCUT TIDAC [facility]; Protocol Last Admin: 06/05/19 12:03 Dose: 1 units Lisinopril (Prinivil) 40 mg PO DAILY [facility] Last Admin: 06/05/19 09:02 Dose: 40 mg Metoprolol Tartrate (Lopressor) 25 mg PO BID [facility] Last Admin: 06/05/19 09:00 Dose: 25 mg Morphine Sulfate (Morphine) 2 mg IVPUSH Q2H PRN PRN Reason: Pain (severe 7-10) Last Admin: 06/04/19 05:54 Dose: 2 mg Omeprazole (Omeprazole) 20 mg PO ACBREAKFAST [facility] Ondansetron HCl (Zofran) 4 mg IVPUSH Q4H PRN PRN Reason: Nausea Ondansetron HCl (Zofran) 4 mg IVPUSH Q6H PRN PRN Reason: Nausea/Vomiting Polyethylene Glycol (Miralax) 17 gm PO DAILY [facility] Last Admin: 06/05/19 09:07 Dose: 17 gm Sodium Chloride (Saline Flush) 2.5 ml FLUSH ASDIRECTED PRN PRN Reason: Keep Vein Open Sodium Chloride (Saline Flush) 10 ml FLUSH ASDIRECTED PRN PRN Reason: Keep Vein Open Sodium Chloride (Saline Flush) 2.5 ml FLUSH ASDIRECTED PRN PRN Reason: Keep Vein Open Discontinued Medications Bupivacaine HCl (Sensorcaine-Mpf 0.5%) Confirm Administered Dose 10 ml .ROUTE .STK-MED ONE Stop: 06/03/19 13:42 Cefazolin Sodium/Dextrose (Ancef) Confirm Administered Dose 2 gm IV .STK-MED ONE Stop: 06/03/19 14:33 Docusate Sodium (Colace) 100 mg PO BID PRN PRN Reason: Constipation Last Admin: 06/04/19 23:23 Dose: 100 mg Docusate Sodium (Colace) 100 mg PO BID PRN PRN Reason: Constipation Fentanyl (Sublimaze) Confirm Administered Dose 100 mcg .ROUTE .STK-MED ONE Stop: 06/03/19 13:34 Fentanyl (Sublimaze) 50 mcg IVPUSH Q5M PRN PRN Reason: Pain (severe 7-10) Stop: 06/04/19 15:29 Pantoprazole Sodium 40 mg/ (Sodium Chloride) 10 mls @ 300 mls/hr IV Q24H [facility] Last Admin: 06/05/19 06:01 Dose: 300 mls/hr Lactated Ringer's (Ringers, Lactated) 1,000 mls @ 50 mls/hr IV Q20H [facility] Last Admin: 06/03/19 19:35 Dose: 50 mls/hr Sodium Chloride (Normal Saline) Confirm Administered Dose 20 mls @ as directed .ROUTE .STK-MED ONE Stop: 06/03/19 13:38 Cefazolin Sodium/Dextrose 1 gm (/ Premix) 50 mls @ 100 mls/hr IV Q8H [facility] Stop: 06/04/19 07:29 Last Admin: 06/04/19 07:50 Dose: 100 mls/hr Ketamine HCl (Ketalar) Confirm Administered Dose 500 mg .ROUTE .STK-MED ONE Stop: 06/03/19 13:38 Midazolam HCl (Versed 1 Mg/Ml) Confirm Administered Dose 2 mg .ROUTE .STK-MED ONE Stop: 06/03/19 13:34 Morphine Sulfate (Morphine) 2 mg IVPUSH Q2H PRN PRN Reason: Pain (severe 7-10) Ondansetron HCl (Zofran) Confirm Administered Dose 4 mg .ROUTE .STK-MED ONE Stop: 06/03/19 14:52 Ondansetron HCl (Zofran) 4 mg IVPUSH ONETIME ONE Stop: 06/03/19 15:28 Last Admin: 06/03/19 17:36 Dose: Not Given Oxycodone HCl (Oxycodone) 5 - 10 mg PO Q4H PRN PRN Reason: Pain Phenylephrine HCl (Phenylephrine In Ns 100 Mcg/Ml) Confirm Administered Dose 1 mg .ROUTE .STK-MED ONE Stop: 06/03/19 15:05 Propofol (Diprivan 20 Ml) Confirm Administered Dose 400 mg .ROUTE .STK-MED ONE Stop: 06/03/19 13:34 Propofol (Diprivan 20 Ml) Confirm Administered Dose 200 mg .ROUTE .STK-MED ONE Stop: 06/03/19 15:51 - Exam Wound/Incisions: Dressing Dry and Intact. No: No Drainage, Erythema Quality Assessment: DVT Prophylaxis (ASA) General: Alert, Cooperative, No Acute Distress HEENT: Pupils Equal Lungs: Normal Respiratory Effort Extremities: No: Pedal Edema Neurological: Normal Speech, Normal Tone Psy/Mental Status: Alert, Normal Mood Sepsis Event Note - Evaluation Sepsis Screening Result: No Definite Risk - Focused Exam Vital Signs: Vital Signs Temp Pulse Pulse Resp BP BP Pulse Ox 06/05/19 15:45 36.3 C 68 15 122/60 97 06/05/19 12:00 36.7 C 71 18 118/58 L 98 06/05/19 09:02 132/78 06/05/19 09:01 132/78 06/05/19 09:00 71 132/78 06/05/19 08:00 37.1 C 71 17 132/78 94 L Date Exam was Performed: 06/05/19 Time Exam was Performed: 17:23 - Problem List Review Problem List Initiated/Reviewed/Updated: Yes - My Orders Last 24 Hours: Active Orders 24 hr Category Date Time Status Ready for Discharge [RC] PER UNIT ROUTINE Care 06/05/19 12:20 Active Docusate Sodium [Colace] Med 06/05/19 09:00 Active 100 mg PO BID Omeprazole Med 06/06/19 07:30 Active 20 mg PO ACBREAKFAST Convert IV to Saline Lock [OM.PC] PRN Oth 06/04/19 16:45 Ordered Medication Orders Acetaminophen (Tylenol) 650 mg PO Q6H PRN PRN Reason: Pain Al Hydroxide/Mg Hydroxide (Mag-Al Plus) 30 ml PO Q4H PRN PRN Reason: Indigestion Albuterol (Proventil Neb Soln) 2.5 mg NEB Q2H PRN PRN Reason: Shortness Of Breath/wheezing Alprazolam (Xanax) 0.5 - 1 mg PO DAILY PRN PRN Reason: Anxiety Last Admin: 06/05/19 12:02 Dose: 0.5 mg Admin: 06/04/19 20:51 Dose: 0.5 mg Admin: 06/04/19 10:18 Dose: 0.5 mg Admin: 06/03/19 09:13 Dose: 0.5 mg Admin: 06/03/19 00:43 Dose: 0.25 mg Amlodipine Besylate (Norvasc) 10 mg PO DAILY [facility] Last Admin: 06/05/19 09:01 Dose: 10 mg Admin: 06/04/19 10:17 Dose: Not Given Admin: 06/03/19 10:28 Dose: Aspirin (Aspirin) 325 mg PO DAILY [facility] Last Admin: 06/05/19 09:01 Dose: 325 mg Admin: 06/04/19 08:23 Dose: 325 mg Admin: 06/03/19 21:01 Dose: 325 mg Atorvastatin Calcium (Lipitor) 40 mg PO DAILY [facility] Last Admin: 06/05/19 09:01 Dose: 40 mg Admin: 06/04/19 08:22 Dose: 40 mg Admin: 06/03/19 10:28 Dose: Bisacodyl (Dulcolax) 10 mg RECTAL DAILY PRN PRN Reason: Constipation Last Admin: 06/05/19 12:04 Dose: 10 mg Docusate Sodium (Colace) 100 mg PO BID [facility] Last Admin: 06/05/19 09:12 Dose: 100 mg Hydrochlorothiazide (Hydrochlorothiazide) 25 mg PO DAILY [facility] Last Admin: 06/05/19 09:01 Dose: 25 mg Admin: 06/04/19 10:17 Dose: Not Given Admin: 06/03/19 10:28 Dose: Hydromorphone HCl (Dilaudid) 0.5 - 1 mg IVPUSH Q3H PRN PRN Reason: Pain Lactated Ringer's (Ringers, Lactated) 1,000 mls @ 50 mls/hr IV Q20H [facility] Last Admin: 06/05/19 07:02 Dose: Admin: 06/04/19 10:56 Dose: 50 mls/hr Ibuprofen (Motrin) 600 mg PO Q6H [facility] Last Admin: 06/05/19 11:37 Dose: 600 mg Admin: 06/05/19 06:00 Dose: 600 mg Admin: 06/04/19 23:20 Dose: 600 mg Admin: 06/04/19 17:10 Dose: 600 mg Admin: 06/04/19 12:00 Dose: 600 mg Admin: 06/04/19 05:55 Dose: 600 mg Admin: 06/03/19 23:21 Dose: 600 mg Admin: 06/03/19 17:50 Dose: 600 mg Insulin Aspart (Novolog) 0 unit SUBCUT [facility]; Protocol Last Admin: 06/05/19 12:03 Dose: 1 units Admin: 06/05/19 08:57 Dose: 3 units Admin: 06/04/19 18:07 Dose: 2 units Admin: 06/04/19 12:57 Dose: 2 units Admin: 06/04/19 08:01 Dose: Not Given Admin: 06/03/19 17:57 Dose: Not Given Admin: 06/03/19 12:51 Dose: Not Given Admin: 06/03/19 08:05 Dose: Not Given Admin: 06/02/19 16:57 Dose: Not Given Lisinopril (Prinivil) 40 mg PO DAILY [facility] Last Admin: 06/05/19 09:02 Dose: 40 mg Admin: 06/04/19 10:18 Dose: Not Given Admin: 06/03/19 10:29 Dose: Metoprolol Tartrate (Lopressor) 25 mg PO BID [facility] Last Admin: 06/05/19 09:00 Dose: 25 mg Admin: 06/04/19 20:35 Dose: 25 mg Admin: 06/04/19 10:54 Dose: 25 mg Admin: 06/04/19 10:17 Dose: Not Given Admin: 06/03/19 21:02 Dose: 25 mg Admin: 06/03/19 09:14 Dose: 25 mg Admin: 06/03/19 03:03 Dose: Not Given Morphine Sulfate (Morphine) 2 mg IVPUSH Q2H PRN PRN Reason: Pain (severe 7-10) Last Admin: 06/04/19 05:54 Dose: 2 mg Admin: 06/03/19 23:19 Dose: 2 mg Admin: 06/03/19 18:58 Dose: 2 mg Omeprazole (Omeprazole) 20 mg PO ACBREAKFAST [facility] Ondansetron HCl (Zofran) 4 mg IVPUSH Q4H PRN PRN Reason: Nausea Ondansetron HCl (Zofran) 4 mg IVPUSH Q6H PRN PRN Reason: Nausea/Vomiting Polyethylene Glycol (Miralax) 17 gm PO DAILY [facility] Last Admin: 06/05/19 09:07 Dose: 17 gm Admin: 06/04/19 10:17 Dose: Not Given Sodium Chloride (Saline Flush) 2.5 ml FLUSH ASDIRECTED PRN PRN Reason: Keep Vein Open Sodium Chloride (Saline Flush) 10 ml FLUSH ASDIRECTED PRN PRN Reason: Keep Vein Open Sodium Chloride (Saline Flush) 2.5 ml FLUSH ASDIRECTED PRN PRN Reason: Keep Vein Open - Assessment Assessment (Free Text/Narrative):: Post-operatively, doing well. Ambulating with staff, SBA of PT, and walker. Afebrile. Tolerating po food/fluids. Pain controlled with Ibuprofen. Ready to be discharged home with his daughter. Surgical dressing removed. Incision SCI, well approximated with steri-strips atop. AquaCell bandage applied. No surrounding erythema, soft tissue swelling or drainage from surgical site. He has been discharged from hospitalist services. Orthopedic Discharge orders completed.
[2019-06-06] MEDS ORDERED: Omeprazole 20 MG Cap.CR PO SCH (07:30)
--- NOTE | 2019-06-06 13:01 | PCM.DCSUM1 ---
Discharge Summary - Hospital Course Free Text/Narrative:: document #[id number] Brief History: This 79 year old male with pmh of CAD, HTN, dyslipidemia, Dm Type [address] Reese's clinic today with hip pain. 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 He denies passing out. he reports he thinks his hand slipped and then he lost his balance and fell off the ladder landing on his R hip. He reports he had pain and dealt with it over the weekend, ambulating with crutches, but the pain continued and he saught evaluation in the clinic. He reports he has been feeling really well otherwise. No fevers chill or recent URI. He denies chest pain, palpitations or dyspnea. He denies abdominal pain. No urinary or bowel concerns. No black or bloody BMs. No focal neurological deficits. He reports he had 2 stents placed 8 years ago for angina and dyspnea. He denies [place]. He reports these symptoms immediately improved after stents were placed. He was on Plavix previously, but now only takes ASA daily. Denies CHF. DM Type 2 is controlled, last A1c was 6.4 in March 2019. He denies tobacco use or alcohol use. In the clinic Xray of R hip revealed basicervical fracture within the R hip. Direct admission arranged. Once admitted, mild leukocytosis noted, likely reactive from fracture. No acute infection noted. CXR negative, no cardiopulmonary process, no cardiomegaly noted. EKG SR with no St elevations or T wave inversions noted. [facility] WNL. Will obtain UA. - Discharge Data Discharge Date: 06/05/19 Discharge Disposition: Home, Self-Care 01 Condition: Good - Referral to Home Health Primary Care Physician: Shahram Reese MD - Patient Summary/Data Operative Procedure(s) Performed: Open reduction and internal fixation of right femoral neck fracture Consults: Consultations 06/02/19 15:29 Consult to Physician [CONS] Routine 06/03/19 16:43 PT Evaluation and Treatment [CONS] Routine - Patient Instructions Diet: Usual Diet as Tolerated Activity, Other: Weight bearing as tolerates, with use of Walker for ambulation & transfers Driving: Do Not Drive Showering/Bathing: May Shower Wound/Incision Care: Do NOT Change Dressing Notify Provider of: Fever, Increased Pain, Swelling and Redness, Drainage Other/Special Instructions: Ice therapy to hip for pain control. Outpatient PT for stregthening. - Discharge Plan *PRESCRIPTION DRUG MONITORING PROGRAM REVIEWED*: Not Applicable *COPY OF PRESCRIPTION DRUG MONITORING REPORT IN PATIENT REVA: Not Applicable Prescriptions/Med Rec: Acetaminophen [Tylenol] 650 mg PO Q6H PRN #100 tablet PRN Reason: Pain Aspirin 325 mg PO DAILY #30 tablet Ibuprofen [Motrin] 600 mg PO Q6H #50 tablet Home Medications: Home Meds Glimepiride [Amaryl] 2 mg PO DAILY 06/02/19 [History] Lisinopril 40 mg PO DAILY 06/02/19 [History] Metoprolol Tartrate 25 mg PO BID 06/02/19 [History] Nitroglycerin [Nitrostat] 0.4 mg SL ASDIRECTED PRN 06/02/19 [History] amLODIPine Besylate [Norvasc] 10 mg PO DAILY 06/02/19 [History] atorvaSTATin [Lipitor] 40 mg PO DAILY 06/02/19 [History] hydroCHLOROthiazide [Hydrochlorothiazide] 25 mg PO DAILY 06/02/19 [History] metFORMIN HCl [Metformin HCl ER] 1,500 mg PO WITHDINNER 06/02/19 [History] Acetaminophen [Tylenol] 650 mg PO Q6H PRN #100 tablet 06/05/19 [Rx] Aspirin 325 mg PO DAILY #30 tablet 06/05/19 [Rx] Ibuprofen [Motrin] 600 mg PO Q6H #50 tablet 06/05/19 [Rx] Omeprazole 20 mg PO ACBREAKFAST cap.cr 06/05/19 [Rx] Patient Handouts: Open Reduction and Internal Fixation for Hip Fracture, Care After, Ibuprofen tablets and capsules, Acetaminophen tablets or caplets, Aspirin , ASA oral tablets Referrals: Reggie Bah MD [Physician] - 06/27/19 1:30 pm (3 weeks ) Shahram Reese MD [Primary Care Provider] - 06/11/19 10:00 am - Discharge Summary/Plan Comment DC Time >30 min.: No - Patient Data Vitals - Most Recent: Last Vital Signs Temp 36.3 C 06/05/19 15:45 Pulse 68 06/05/19 15:45 Resp 15 06/05/19 15:45 BP 122/60 06/05/19 15:45 Pulse Ox 97 06/05/19 15:45 Weight - Most Recent: 80.5 kg I&O - Last 24 hours: Intake & Output 06/05/19 06/06/19 06/06/19 22:59 06:59 14:59 Intake Total 1250 Output Total 1300 Balance -50 Lab Results - Last 24 hrs: Laboratory Results - last 24 hr 06/05/19 Range/Units 16:48 POC Glucose 181 H (60-110) mg/dL Med Orders - Current: Current Medications Discontinued Medications Acetaminophen (Tylenol) 650 mg PO Q6H PRN PRN Reason: Pain Al Hydroxide/Mg Hydroxide (Mag-Al Plus) 30 ml PO Q4H PRN PRN Reason: Indigestion Albuterol (Proventil Neb Soln) 2.5 mg NEB Q2H PRN PRN Reason: Shortness Of Breath/wheezing Alprazolam (Xanax) 0.5 - 1 mg PO DAILY PRN PRN Reason: Anxiety Last Admin: 06/05/19 12:02 Dose: 0.5 mg Amlodipine Besylate (Norvasc) 10 mg PO DAILY [facility] Last Admin: 06/05/19 09:01 Dose: 10 mg Aspirin (Aspirin) 325 mg PO DAILY [facility] Last Admin: 06/05/19 09:01 Dose: 325 mg Atorvastatin Calcium (Lipitor) 40 mg PO DAILY [facility] Last Admin: 06/05/19 09:01 Dose: 40 mg Bisacodyl (Dulcolax) 10 mg RECTAL DAILY PRN PRN Reason: Constipation Last Admin: 06/05/19 12:04 Dose: 10 mg Bupivacaine HCl (Sensorcaine-Mpf 0.5%) Confirm Administered Dose 10 ml .ROUTE .STK-MED ONE Stop: 06/03/19 13:42 Cefazolin Sodium/Dextrose (Ancef) Confirm Administered Dose 2 gm IV .STK-MED ONE Stop: 06/03/19 14:33 Docusate Sodium (Colace) 100 mg PO BID PRN PRN Reason: Constipation Last Admin: 06/04/19 23:23 Dose: 100 mg Docusate Sodium (Colace) 100 mg PO BID PRN PRN Reason: Constipation Docusate Sodium (Colace) 100 mg PO BID [facility] Last Admin: 06/05/19 09:12 Dose: 100 mg Fentanyl (Sublimaze) Confirm Administered Dose 100 mcg .ROUTE .STK-MED ONE Stop: 06/03/19 13:34 Fentanyl (Sublimaze) 50 mcg IVPUSH Q5M PRN PRN Reason: Pain (severe 7-10) Stop: 06/04/19 15:29 Hydrochlorothiazide (Hydrochlorothiazide) 25 mg PO DAILY [facility] Last Admin: 06/05/19 09:01 Dose: 25 mg Hydromorphone HCl (Dilaudid) 0.5 - 1 mg IVPUSH Q3H PRN PRN Reason: Pain Pantoprazole Sodium 40 mg/ (Sodium Chloride) 10 mls @ 300 mls/hr IV Q24H [facility] Last Admin: 06/05/19 06:01 Dose: 300 mls/hr Lactated Ringer's (Ringers, Lactated) 1,000 mls @ 50 mls/hr IV Q20H [facility] Last Admin: 06/03/19 19:35 Dose: 50 mls/hr Sodium Chloride (Normal Saline) Confirm Administered Dose 20 mls @ as directed .ROUTE .STK-MED ONE Stop: 06/03/19 13:38 Cefazolin Sodium/Dextrose 1 gm (/ Premix) 50 mls @ 100 mls/hr IV Q8H [facility] Stop: 06/04/19 07:29 Last Admin: 06/04/19 07:50 Dose: 100 mls/hr Lactated Ringer's (Ringers, Lactated) 1,000 mls @ 50 mls/hr IV Q20H [facility] Last Admin: 06/05/19 07:02 Dose: Not Given Ibuprofen (Motrin) 600 mg PO Q6H [facility] Last Admin: 06/05/19 11:37 Dose: 600 mg Insulin Aspart (Novolog) 0 unit SUBCUT TIDAC [facility]; Protocol Last Admin: 06/05/19 12:03 Dose: 1 units Ketamine HCl (Ketalar) Confirm Administered Dose 500 mg .ROUTE .STK-MED ONE Stop: 06/03/19 13:38 Lisinopril (Prinivil) 40 mg PO DAILY [facility] Last Admin: 06/05/19 09:02 Dose: 40 mg Metoprolol Tartrate (Lopressor) 25 mg PO BID [facility] Last Admin: 06/05/19 09:00 Dose: 25 mg Midazolam HCl (Versed 1 Mg/Ml) Confirm Administered Dose 2 mg .ROUTE .STK-MED ONE Stop: 06/03/19 13:34 Morphine Sulfate (Morphine) 2 mg IVPUSH Q2H PRN PRN Reason: Pain (severe 7-10) Morphine Sulfate (Morphine) 2 mg IVPUSH Q2H PRN PRN Reason: Pain (severe 7-10) Last Admin: 06/04/19 05:54 Dose: 2 mg Omeprazole (Omeprazole) 20 mg PO ACBREAKFAST [facility] Ondansetron HCl (Zofran) 4 mg IVPUSH Q4H PRN PRN Reason: Nausea Ondansetron HCl (Zofran) Confirm Administered Dose 4 mg .ROUTE .STK-MED ONE Stop: 06/03/19 14:52 Ondansetron HCl (Zofran) 4 mg IVPUSH ONETIME ONE Stop: 06/03/19 15:28 Last Admin: 06/03/19 17:36 Dose: Not Given Ondansetron HCl (Zofran) 4 mg IVPUSH Q6H PRN PRN Reason: Nausea/Vomiting Oxycodone HCl (Oxycodone) 5 - 10 mg PO Q4H PRN PRN Reason: Pain Phenylephrine HCl (Phenylephrine In Ns 100 Mcg/Ml) Confirm Administered Dose 1 mg .ROUTE .STK-MED ONE Stop: 06/03/19 15:05 Polyethylene Glycol (Miralax) 17 gm PO DAILY [facility] Last Admin: 06/05/19 09:07 Dose: 17 gm Propofol (Diprivan 20 Ml) Confirm Administered Dose 400 mg .ROUTE .STK-MED ONE Stop: 06/03/19 13:34 Propofol (Diprivan 20 Ml) Confirm Administered Dose 200 mg .ROUTE .STK-MED ONE Stop: 06/03/19 15:51 Sodium Chloride (Saline Flush) 2.5 ml FLUSH ASDIRECTED PRN PRN Reason: Keep Vein Open Sodium Chloride (Saline Flush) 10 ml FLUSH ASDIRECTED PRN PRN Reason: Keep Vein Open Sodium Chloride (Saline Flush) 2.5 ml FLUSH ASDIRECTED PRN PRN Reason: Keep Vein Open
--- NOTE | 2019-06-06 17:34 | DISCH ---
DATE OF DISCHARGE: 06/05/2019 PRIMARY CARE PHYSICIAN: Shahram Reese M.D. CONSULTING PROVIDER: Dr. Reggie Bah. ADMITTING DIAGNOSIS: Right hip fracture. OTHER MEDICAL DIAGNOSES: 1. Hypertension. 2. Dyslipidemia. 3. Diabetes mellitus type 2. 4. Coronary artery disease. 5. Anxiety. HISTORY: This 79-year-old male slipped and fell off a ladder on 05/31/2019 landing on his right hip. Due to continued pain, he was seen for evaluation in clinic by his primary care provider. In the clinic, x-ray of right hip revealed a right hip fracture and he was admitted for services. He was initially admitted under hospitalist care until orthopedic consultation. He underwent open reduction and internal fixation of right femoral neck fracture by Dr. Reggie Bah on 06/03/2019. He was transferred to PACU with no surgical complications, then to [facility] for postop care. Postoperatively, he did well. Prophylactic antibiotics included Ancef for 24 hours. He was weightbearing as tolerated with no hip precautions, assessed by Physical Therapy in the hospital, ambulating well with walker and standby assistance. Vital signs were stable and afebrile during hospital stay. VTE prophylaxis included an aspirin enteric-coated 325 mg. Hemoglobin postop day #1 10.2. Pain was well controlled with ibuprofen 600 mg every 6 hours. Surgical dressing was removed on 06/05/2019 and assessed to be clean, dry, and intact with Steri-Strips. Aquacel dressing was applied. He was ready to be discharged home under the care and supervision of his daughter. Hospitalist consultation signed off on his care. DISCHARGE MEDICATIONS: 1. Ibuprofen 600 mg one tablet every 6 hours. 2. Tylenol 325 mg 2 tablets every 6 hours. 3. Amlodipine 10 mg daily. 4. Aspirin 325 mg daily. 5. Atorvastatin 40 mg daily. 6. Glimepiride 2 mg daily. 7. Hydrochlorothiazide 25 mg daily. 8. Lisinopril 40 mg daily. 9. Metformin 500 mg extended release daily. 10.Metoprolol 25 mg twice daily. 11.Omeprazole 20 mg daily. The patient will receive physical therapy on an outpatient basis. He is scheduled for a followup visit in Orthopedic Clinic on June [address] Reggie Bah. He is to call or return to Orthopedic Clinic sooner than scheduled followup if acute questions or concerns. NORBCHE / MODL /[id number]
== END 2019-06-05 17:20 | disposition home or self-care (01) | DRG 482 ==
LOC: MW.MS 15:20
PROVIDERS: ADMIT Student in an Organized Health Care Education/Training Program; ATTEND Student in an Organized Health Care Education/Training Program
PROC: 0QS604Z Reposition Right Upper Femur with Internal Fixation Device, Open Approach (ICD-10-PCS; principal; 2019-06-03)
DX: S72.001A Fracture of unspecified part of neck of right femur, initial encounter for closed fracture (principal); I25.10 Atherosclerotic heart disease of native coronary artery without angina pectoris; M85.80 Other specified disorders of bone density and structure, unspecified site; I10 Essential (primary) hypertension; E11.9 Type 2 diabetes mellitus without complications; F41.9 Anxiety disorder, unspecified; K21.9 Gastro-esophageal reflux disease without esophagitis; E78.5 Hyperlipidemia, unspecified; I95.1 Orthostatic hypotension; Z79.82 Long term (current) use of aspirin; Z79.899 Other long term (current) drug therapy; W11.XXXA Fall on and from ladder, initial encounter
CPT/HCPCS: 36415; 71045; 71045-26; 76000; 76000-26; 80048; 80053; 81001; 82962; 85014; 85018; 85025; 85610; 85730; 93005; 97116-GP; 97161-GP; 97530-GP; A9270-GY; C9113; J0690; J1815-GY; J2250; J2270; J2370; J2405; J2704; J3010; J3490; J7050; J7120